=== PATIENT | female | born 1940 | race Caucasian/White ===

== ENCOUNTER 2018-09-05 02:13 | Outpatient (CLI) | payer MEDICARE, SELFPAY ==
[2018-09-05 08:19] LABS: Hemoglobin A1C 6.5 % (4.5-6.2)
[2018-09-05 08:52] LABS: ALT 27 U/L (12-78); AST 17 U/L (15-37); Albumin 3.3 g/dL (3.4-5.0); Alkaline Phosphatase 92 U/L (46-116); Anion Gap 7.5 mmol/L (3-11); BUN 23 mg/dL (7-18); Bilirubin, Total 0.4 mg/dL (0.2-1.0); CO2 28.5 mmol/L (21.0-32.0); CREATININE 0.82 mg/dL (0.55-1.02); Calcium 9.5 mg/dL (8.5-10.1); Chloride 107 mmol/L (98-107); Cholesterol 233 mg/dL (50-200); Glucose 116 mg/dL (70-100); HDL Cholesterol 51 mg/dL (40-60); LDL CHOLESTEROL 154 mg/dL (<100); Potassium 3.9 mmol/L (3.5-5.1); Sodium 143 mmol/L (136-145); Total Protein 6.7 g/dL (6.4-8.2); Triglyceride 138 mg/dL (30-150)
== END 2018-09-05 02:33 ==
DX: R73.01 Impaired fasting glucose (principal); I10 Essential (primary) hypertension; E78.5 Hyperlipidemia, unspecified; E03.9 Hypothyroidism, unspecified; R63.8 Other symptoms and signs concerning food and fluid intake; F32.9 Major depressive disorder, single episode, unspecified; G89.4 Chronic pain syndrome
CPT/HCPCS: 36415; 80053; 80061; 83721; 83036

== ENCOUNTER 2019-01-12 13:23 | Emergency (ER) | payer MEDICARE, MEDICAID, SELFPAY ==
[2019-01-12 13:26] VITALS: BP 143/65; PULSE 95; RESP 18; TEMP 36.6; O2SAT 95
--- NOTE | 2019-01-12 13:48 | W.ED.GENAD ---
Discharge Plan Disposition Patient Disposition: HOME Condition: Stable Discharge Details Chief Complaint: GenMedical Clinical Impression: Rash Primary Care Provider: Arlyn Shah ED Provider: Jaleel Catherine Home Meds and New Rx's Prescriptions: New doxycycline hyclate 100 mg tablet 100 mg PO BID Qty: 30 RF: 0 Continued gabapentin 300 mg capsule 300 mg PO DAILY Qty: 90 RF: 3 multivitamin 1 EACH tablet 1 ea PO DAILY RF: 0 cholecalciferol (vitamin D3) 1,000 UNIT capsule 1,000 unit PO DAILY RF: 0 lisinopril 5 MG tablet 5 mg PO DAILY Qty: 30 RF: 0 nystatin (bulk) 1 EACH powder 1 ea Miscellaneous TID Qty: 1 RF: 0 hydrochlorothiazide 25 mg tablet 25 mg PO QAM Qty: 90 RF: 3 omeprazole 20 mg capsule,delayed release(DR/EC) 20 mg PO DAILY Qty: 30 RF: 11 amlodipine 5 mg tablet 5 mg PO QAM Qty: 90 RF: 4 citalopram [Celexa] 20 mg tablet 20 mg PO DAILY Qty: 90 RF: 3 Discharge Instructions Additional Instructions: based on your symptoms and appearance of the rash we are treating you for possible lyme disease follow up with your primary care provider especially if symptoms continue in 1-2 weeks if you feel more ill, have new symptoms such as chest pain/pressure or difficulty breathing or persistent vomit return to the emergency department Medical Decision Making 78 yo female comes in with rash on her right shoulder. She states she was bit by some type of bug but is not sure what as she had a small bite area 2 weeks ago. She has had mild headaches and fatgiue since and has had this erythema of the right shoulder so came here. She is ambulating without assistance and in no distress, laughing intermittently on exam. She descrbies the headache as mild and has no meninigismus on exam. She has a 12cm area of erythema of the right shoulder with small 1cm central clearing and what appears to be a small area that was bit by an insect. I suspect lyme disease given symptoms and rash. Will initiate tx for this and obtain tick panel. She appears well without fevers so doubt sepsis and has no findings to suggest turbine blade assembler infection and do not feel lp indicated at this time. She was advised to f/u with pcp and return precautions given. The rash is not warm to touch and has no crepitus so doubt cellulitis or nec fasc Differential Diagnosis lyme, tick born illness HPI General Mode of arrival: ambulatory. Date/Time Provider Initiated Documentation: 01/12/19 13:32. Limitations to Documentation: no limitations. Information obtained by: patient. History of Present Illness 78 year old F presents to the emergency department with the chief complaint of rash, described as moderate, and is localized to the right and upper extremity. Patient started experiencing this week(s) (2) and it has been constant. No relieving factors improve symptom(s), No exacerbating factors reported . Patient did receive the following treatments prior to arrival, none Related Data Home Medications Medication Instructions Recorded Confirmed cholecalciferol (vitamin D3) 1,000 unit PO DAILY 10/11/12 01/12/19 multivitamin 1 ea PO DAILY 10/11/12 01/12/19 lisinopril 5 mg PO DAILY #30 tab-cap 05/22/17 01/12/19 nystatin (bulk) 1 ea MISCELLANEOUS TID #1 bottle 05/22/17 01/12/19 hydrochlorothiazide 25 mg tablet 25 mg PO QAM #90 tab 04/18/18 01/12/19 omeprazole 20 mg capsule,delayed 20 mg PO DAILY #30 tab-cap 04/25/18 01/12/19 release amlodipine 5 mg tablet 5 mg PO QAM #90 tab-cap 07/27/18 01/12/19 gabapentin 300 mg capsule 300 mg PO DAILY #90 cap 08/21/18 01/12/19 citalopram 20 mg tablet 20 mg PO DAILY #90 tab-cap 10/08/18 01/12/19 doxycycline hyclate 100 mg PO BID #30 tab 01/12/19 Previous Rx's Medication Instructions Recorded lisinopril 5 mg PO DAILY #30 tab-cap 05/22/17 nystatin (bulk) 1 ea MISCELLANEOUS TID #1 bottle 05/22/17 hydrochlorothiazide 25 mg tablet 25 mg PO QAM #90 tab 04/18/18 omeprazole 20 mg capsule,delayed 20 mg PO DAILY #30 tab-cap 04/25/18 release amlodipine 5 mg tablet 5 mg PO QAM #90 tab-cap 07/27/18 gabapentin 300 mg capsule 300 mg PO DAILY #90 cap 08/21/18 citalopram 20 mg tablet 20 mg PO DAILY #90 tab-cap 10/08/18 doxycycline hyclate 100 mg PO BID #30 tab 01/12/19 Allergies Allergy/AdvReac Type Severity Reaction Status Date / Time indomethacin Allergy Unknown Verified 01/12/19 13:32 General Stated Complaint: GenMedical JIGNA: 3 Review of Systems Review of Systems All systems reviewed & are unremarkable except as noted in HPI and below Constitutional Denies chills, Denies fever(s) and Denies weakness Cardiovascular Denies chest pain and Denies dyspnea Respiratory Denies cough and Denies dyspnea Gastrointestinal Denies abdominal pain, Denies nausea and Denies vomiting Musculoskeletal Denies joint swelling Neurologic Denies weakness [facility] Social History (Updated 09/04/18 @ 08:26 by Antione Cline) Smoking/Tobacco Use Status: Former Tobacco Use Second Hand Exposure: Yes Alcohol Intake: current Alcohol Intake frequency: a few times a month Substance use type: former substance user and marijuana Caregiver/Support person: No Household members: none Housing: house Pets and animals: Yes Pets and animals: cat(s) and dog(s) Sexually active: No Do you think of yourself as: lesbian/cox/homosexual Current gender identity: female What is your relationship status?: How often do you talk on the phone with friends or family?: three or more times per week How often do you get together with friends or relatives?: three or more times per week How often do you attend zoroastrianism or holiness services?: 4 or more times per year Do you belong to any clubs or organized social groups?: yes Panel score (0-1 are the most socially isolated patients): 3 What type of physical activity do you participate in: other Details: outdoor exercise, show shoveling, rowing machine Duration: 15-30 minutes/day Frequency: decline to answer Vero/Pentecostalism: Hoahaoism Special vero needs: No Do you feel safe at home: Yes Do you feel safe in your relationship?: Yes Exam Const General: no acute distress Orientation: alert HENMT Head: normal to inspection Ears: external ears normal General nose exam: external nose normal Mouth: moist mucous membranes Eyes General: appearance normal, both eyes and all related structures Neck Neck: normal visual inspection Resp Effort & Inspection: normal respiratory effort and able to speak in complete sentences Cardio Rate: regular rate Skin General skin exam: elasticity normal Neuro General: alert and oriented x3 Extrem General: full ROM Psych Mental Status: mental status grossly normal Course Vital Signs Temperature 36.6 C 01/12/19 13:26 Pulse 95 H 01/12/19 13:26 Respiratory Rate 18 01/12/19 13:26 Blood Pressure 143/65 H 01/12/19 13:26 Pulse Oximetry 95 01/12/19 13:26 Temperature 36.6 C 01/12/19 13:26 Temperature Source Temporal Artery Scan 01/12/19 13:26 Pulse 95 H 01/12/19 13:26 Respiratory Rate 18 01/12/19 13:26 Respiratory Effort Non-Labored 01/12/19 13:26 Blood Pressure 143/65 H 01/12/19 13:26 Pulse Oximetry 95 01/12/19 13:26 Oxygen Delivery Method Room Air 01/12/19 13:26 Oxygen Flow Rate 0 01/12/19 13:26
[2019-01-14 11:53] LABS: Lyme Ab w Rflx to Lyme Confirm Positive
[2019-01-15 15:26] LABS: Anaplasma phagocytophilum Negative (Negative); B. miyamotoi PCR Negative (Negative); Babesia divergens/MO-1 Negative (Negative); Babesia duncani Negative (Negative); Babesia microti Negative (Negative); Ehrlichia chaffeensis Negative (Negative); Ehrlichia ewingii/canis Negative (Negative); Ehrlichia muris eauclairensis Negative (Negative)
[2019-01-16 19:55] LABS: IgG Band(s) SEE COMMENTS kDa; IgG Immunoblot Positive; IgM Immunoblot Positive; Immunoblot Interpretation SEE COMMENTS
== END 2019-01-12 13:58 | disposition home or self-care (01) ==
PROVIDERS: Emergency Provider Emergency Medicine
DX: R21 Rash and other nonspecific skin eruption (principal); R51 Headache; S40.261A Insect bite (nonvenomous) of right shoulder, initial encounter; W57.XXXA Bitten or stung by nonvenomous insect and other nonvenomous arthropods, initial encounter
CPT/HCPCS: 36415; 86617; 87798; 99283; 86618

== ENCOUNTER 2019-07-02 09:15 | Outpatient (CLI) | payer MEDICARE, MEDICAID, SELFPAY ==
--- NOTE | 2019-07-02 11:05 | DI.RAD_ITS ---
EXAM: XR HIP LT COMPLETE AP PELVIS CLINICAL HISTORY: left hip pain M25.552 TECHNIQUE: COMPARISON: RIGHT HIP COMPLETE from 08/08/2012 FINDINGS: Three views were obtained. There is a total hip joint replacement in position on the right. The co mponents appear well seated. There are mild degenerative changes of the SI joints bilaterally. There is marked loss of cartilaginous joint space of the left hip with subchondral sclerosis of the a cetabulum and to a lesser degree the femoral head. Moderate marginal osteophyte formation of the elina tabulum is noted. IMPRESSION: Severe DJD left hip. Right hip total joint replacement in position.
== END 2019-07-02 09:35 ==
PROVIDERS: Visit Provider Nurse Practitioner
DX: M25.552 Pain in left hip (principal); M16.12 Unilateral primary osteoarthritis, left hip; Z96.641 Presence of right artificial hip joint; M53.3 Sacrococcygeal disorders, not elsewhere classified
CPT/HCPCS: 73502

== ENCOUNTER 2019-07-17 11:57 | Outpatient (CLI) | payer MEDICARE, MEDICAID, SELFPAY ==
--- NOTE | 2019-07-17 10:47 | DI.RAD_ITS ---
EXAM: XR KNEE LT 2V AP,LAT INDICATION: pain. COMPARISON: KNEES BILAT AP LATERALS from 08/08/2012 TECHNIQUE: 2D digital imaging was performed. FINDINGS: There are again seen postsurgical changes of a left total knee replacement. No evidence of hardware failure is identified. No acute fracture or dislocation is seen. There is a joint effusion. Soft t issues are unremarkable.
== END 2019-07-17 12:17 ==
PROVIDERS: Visit Provider Orthopaedic Surgery
DX: M25.562 Pain in left knee (principal); M25.462 Effusion, left knee; Z96.652 Presence of left artificial knee joint; M16.12 Unilateral primary osteoarthritis, left hip
CPT/HCPCS: 99214; 73560

== ENCOUNTER 2019-07-22 07:04 | Day surgery (SDC) | payer MEDICARE, SELFPAY ==
[2019-07-22 07:26] VITALS: BP 166/78; PULSE 72; RESP 16; TEMP 36.6
== END 2019-07-22 08:00 | disposition home or self-care (01) ==
LOC: SUR 07:04
PROVIDERS: Visit Provider Orthopaedic Surgery
DX: M16.12 Unilateral primary osteoarthritis, left hip (principal); Z53.8 Procedure and treatment not carried out for other reasons

== ENCOUNTER 2019-07-29 08:15 | Day surgery (SDC) | payer MEDICARE, MEDICAID, SELFPAY ==
[2019-07-29] MEDS: methylPREDNISolone ACETATE 80 MG/ML VIAL (11:02)
[2019-07-29] MEDS: Bupivacaine 0.5% Pres-Free 30 ML VIAL (11:02)
--- NOTE | 2019-07-29 11:07 | PDOC.DSDIS_ITS ---
Discharge Plan Disposition Patient Disposition: HOME Condition: Good Discharge Details Reason For Visit: C-ARM GUIDED L HIP INJECTION Attending Provider: Delon Ni Primary Care Provider: Arlyn Shah Home Meds and New Rx's Prescriptions: Continued multivitamin 1 EACH tablet 1 ea PO DAILY RF: 0 cholecalciferol (vitamin D3) 1,000 UNIT capsule 1,000 unit PO DAILY RF: 0 amlodipine 5 mg tablet 5 mg PO QAM Qty: 90 RF: 4 citalopram [Celexa] 20 mg tablet 20 mg PO DAILY Qty: 90 RF: 3 gabapentin 300 mg capsule 300 mg PO DAILY Qty: 90 RF: 3 omeprazole 20 mg capsule,delayed release(DR/EC) 20 mg PO DAILY Qty: 90 RF: 4 hydrochlorothiazide 25 mg tablet 25 mg PO QAM Qty: 90 RF: 3 ICaps AREDS [id number] Capsule RF: 0 ibuprofen 800 mg Tablet 800 mg PO Q6H RF: 0 acetaminophen [Tylenol] 325 mg Capsule 975 mg PO ONCE PRNRF: 0 Discharge Instructions Additional Instructions: Limit your walking for next 48 hours. Walk as much as you like on Mon. Take ibuprofen for mild pain. Follow up with in one month. Referrals: Delon Ni MD [ [facility] STAFF PHYSICIAN] - (f/u in one month) Activity:: Activity as Tolerated Diet:: As Tolerated Discharge Orders Discharge Orders: Discharge Order (Routine); Ordered 07/29/19 Ordered By: Delon Ni DS: Diagnosis Discharge Diagnosis (1) Osteoarthritis of hip: Status: Acute
--- NOTE | 2019-07-29 11:41 | DI.RAD_ITS ---
EXAM: XR HIP LT IN OR CLINICAL HISTORY: OA LEFT HIP. TECHNIQUE: 2D and realtime digital imaging was performed. COMPARISON: No exams were available for comparison FINDINGS: Please see procedure note for details. FLUORO TIME: 7.3 seconds
--- NOTE | 2019-07-29 17:26 | ROE_ITS ---
DATE OF PROCEDURE: July 29, 2019 PREOPERATIVE DIAGNOSIS: Osteoarthritis of the left hip. POSTOPERATIVE DIAGNOSIS: Same. PROCEDURE: C-arm guided intraarticular injection left hip. ANESTHESIA: Local. SURGEON: Delon Ni M.D. INDICATIONS: This is a 78-year-old white female known to me due to previous right total hip replacem ent. Over the last few months she's developed increasing pain in her left hip. X-rays showed osteoa rthritis of the hip of moderate degree. Since she had had no treatment for this hip, I recommended t hat she start with an intraarticular steroid injection. If she got greater than three months relief from injection, would continue to manage it with injections until they no longer work. Her only alte rnative then would be a total hip replacement. The patient agreed with trying the conservative treat ment program first before jumping to total hip replacement. The risks and complications of the proce dure were explained to the patient in detail preoperatively. PROCEDURE: The patient was taken to the operating room on 07/29/2019. She was placed supine on the o perating table. The C-arm was brought in to the AP mode. The uterine forceps was used to localize t he hip joint. The skin was prepped with alcohol and then an 18 gauge spinal needle was inserted unti l it contacted the femoral head. Good position of the spinal needle in the hip joint and femoral hea d was confirmed with the C-arm. At this point I injected into her hip joint through the spinal needl e 20 cc's of 0.5% Marcaine solution along with 80 mg of Depo-Medrol. The spinal needle was removed a nd bleeding at the pin site was controlled with pressure with a gauze 4x4. I performed a passive mot ion of her left hip for a couple of minutes to distribute the medication. She achieved good relief o f pain. She was discharged to the Day Surgery Unit in good condition. The patient was later discharged home from the Day Surgery Unit. She was experiencing some muscular pain around her anterior hip joint following the injection. It didn't hurt her to step on her hip. I thought that she was feeling a reaction to the steroid. I explained to her that this often happens and usually will resolve after 48 hours. She was given instructions to limit her walking for the next 48 hours; apply ice to her hip q4h for a n hour each time and take ibuprofen as needed for pain. After 48 hours she may resume activities as tolerated. She will follow-up with me in one month.
== END 2019-07-29 12:21 | disposition home or self-care (01) ==
PROVIDERS: Visit Provider Orthopaedic Surgery
PROC: (CPT 20610; principal; 2019-07-29 10:00)
DX: M16.12 Unilateral primary osteoarthritis, left hip (principal); M25.552 Pain in left hip; Z96.641 Presence of right artificial hip joint
CPT/HCPCS: 20610; 77002; J1040

== ENCOUNTER → 2019-08-27 10:05 | Outpatient (BNVA) | payer MEDICARE, MEDICAID, SELFPAY | PROVIDERS: Visit Provider Orthopaedic Surgery | DX: M16.2 Bilateral osteoarthritis resulting from hip dysplasia (principal); I10 Essential (primary) hypertension; Z98.890 Other specified postprocedural states | CPT/HCPCS: 99213 ==

== ENCOUNTER → 2019-11-20 11:01 | Outpatient (BNVA) | payer MEDICARE, MEDICAID, SELFPAY | PROVIDERS: Visit Provider Orthopaedic Surgery | DX: M16.12 Unilateral primary osteoarthritis, left hip (principal); E11.9 Type 2 diabetes mellitus without complications | CPT/HCPCS: 99213 ==

== ENCOUNTER 2019-11-29 20:35 | Outpatient (REF) | payer MEDICARE, MEDICAID, SELFPAY ==
[2019-11-29 21:43] LABS: ALT 38 U/L (14-59); AST 27 U/L (15-37); Albumin 3.8 g/dL (3.4-5.0); Alkaline Phosphatase 83 U/L (46-116); BUN 28 mg/dL (7-18); Bilirubin, Total 0.4 mg/dL (0.2-1.0); CREATININE 0.95 mg/dL (0.55-1.02); Calcium 9.8 mg/dL (8.5-10.1); Chloride 102 mmol/L (98-107); Estimated GFR 56.89 (mL/min/1.73m2); Glucose 100 mg/dL (74-106); Potassium 3.7 mmol/L (3.5-5.1); Sodium 138 mmol/L (136-145); Total Protein 6.9 g/dL (6.4-8.2)
== END 2019-11-29 20:55 ==
LOC: LBN 20:35
DX: E78.2 Mixed hyperlipidemia (principal); F32.9 Major depressive disorder, single episode, unspecified; I10 Essential (primary) hypertension; R63.8 Other symptoms and signs concerning food and fluid intake
CPT/HCPCS: 80053

== ENCOUNTER 2019-12-19 04:35 | Outpatient (CLI) | payer MEDICARE, SELFPAY ==
[2019-12-19 12:58] LABS: Hemoglobin A1C 6.1 % (3.8-5.6)
== END 2019-12-19 04:55 ==
PROVIDERS: Visit Provider Orthopaedic Surgery
DX: E11.9 Type 2 diabetes mellitus without complications (principal); R73.01 Impaired fasting glucose; M16.12 Unilateral primary osteoarthritis, left hip; M25.552 Pain in left hip; Z01.818 Encounter for other preprocedural examination
CPT/HCPCS: 36415; 86850; 86900; 86901; 83036

== ENCOUNTER 2019-12-20 08:31 | Outpatient (CLI) | payer MEDICARE, MEDICAID, SELFPAY ==
[2019-12-20 23:40] LABS: COVID-19 RT-PCR UVMMC Result Negative (Negative)
== END 2019-12-20 08:51 ==
PROVIDERS: Visit Provider Orthopaedic Surgery
DX: Z11.59 Encounter for screening for other viral diseases (principal); Z01.818 Encounter for other preprocedural examination; M16.12 Unilateral primary osteoarthritis, left hip; E11.9 Type 2 diabetes mellitus without complications; I10 Essential (primary) hypertension
CPT/HCPCS: U0003

== ENCOUNTER 2019-12-23 06:04 | Inpatient (IN) | payer MEDICARE, MEDICAID, SELFPAY ==
[2019-12-23] VITALS (14 sets, daily range): BP systolic 95–152; BP diastolic 48–76; PULSE 50–79; RESP 11–19; TEMP 35.8–36.9; O2SAT 93–99
--- NOTE | 2019-12-23 | DI.RAD_ITS ---
EXAM: XR PELVIS AP CLINICAL HISTORY: check total hip components in RR. TECHNIQUE: 2D digital imaging was performed. COMPARISON: CT CHEST ABD PELVIS WO CONTRAST from 11/28/2016 CR XR HIP LT COMPLETE AP PELVIS from 07/02/2019 CR XR HIP LT IN OR from 12/23/2019 FINDINGS: The patient is now status post left total hip replacement. The orthopedic hardware appears in good p osition. There is an old right total hip replacement which appears stable. The soft tissues are unr emarkable. IMPRESSION: Status post left total hip replacement. DATA REPOSITORY: RADIATION DOSE DELIVERED:
--- NOTE | 2019-12-23 07:00 | DI.RAD_ITS ---
EXAM: XR HIP LT IN OR CLINICAL HISTORY: OSTEOARTHRITIS LEFT HIP. TECHNIQUE: 2D digital imaging was performed. COMPARISON: CR XR HIP LT COMPLETE AP PELVIS from 07/02/2019 FINDINGS: Two images of the left hip were obtained intraoperatively. There are findings of placement of a left total hip replacement. The orthopedic hardware appears in good position. Postsurgical changes are seen in the soft tissues. There is an old right total hip replacement in place. IMPRESSION: Left total hip replacement. Postsurgical changes in the soft tissues of the left hip. DATA REPOSITORY: RADIATION DOSE DELIVERED:
[2019-12-23] MEDS: Lactated Ringers 1,000 ML 80 ML IV ×2 (07:09→11:40)
[2019-12-23] MEDS: ceFAZolin 2 GM/50 ML BAG IVPB ×3 (07:36→17:29)
[2019-12-23] MEDS: oxyCODONE-CR 10 MG TABCR PO (12:28)
--- NOTE | 2019-12-23 13:06 | NUR.NOTE ---
Nursing Note:1150- pt transferred from PACU to medsur floor. VSS, immobilizer in place, fluids running, and vital signs being monitored. pt put on capnography.
--- NOTE | 2019-12-23 14:11 | PT.INIE ---
Date of service: 12/23/19 Time of Service: 14:11 PT Notes Visit Reasons: POST-OP L TOTAL HIP Physical Therapy Inpatient Initial Evaluation Date: 12/23/2019 Referring Doctor: Delon Ni MD PT Orders: PT CONSULT: S/P Ortho surgery. Get OOB in room this afternoon. L total hip precautions. Precautions: Fall. Standard. WBAT on L LE. Total hip precautions on L. Patient Profile/Admitting Diagnosis: Cathryn is a 79-year-old female with primary unilateral osteoarthritis S/P L posterior total hip arthroplasty on postoperative day 0. PMHX: Medical History Depression (Acute 07/10/14) Diabetes mellitus (Chronic) Essential hypertension (Acute 04/22/13) Increased body mass index (BMI) (Acute 08/15/17) Tick bite (Acute) Surgical History Cholecystectomy HERNIA REPAIR (~2007) -COMPLICATION OF HERNIA REPAIR AT [facility] [place] reversed History of tonsillectomy and adenoidectomy (Acute) Replacement of total knee joint LEFT 1994. RIGHT 2002 Splenomegaly pt. reports spleen was removed Total replacement of hip (~2008) RIGHT Social History/Home Situation: Lives alone in private home in [place], [place] with 4 steps to enter and rails on both sides. She had been using a single-point cane in the past several months as it had been getting harder to move about due to her worsening arthritis. She is independent with all aspects of ADLs prior to surgery. 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 She has friends who can be there whenever needed for any kind of support. Equipment Owned/DME: Has FWW, SPC, walk-in shower, hand-held shower head, grab bars Subjective: Cathryn reports that she hopes to go home as soon as she is safe to do so. She states that she has friends at home to help her as needed. She lives n one floor and does not need to negotiate long steps inside her home. She reports 3/10 pain at rest and 4-5/10 with weight bearing. Denies headache, dizziness, and chest pain throughout session. She states that she has good understanding of her precautions against sitting on low chairs placing L knee above hip, crossing her legs, and rotating thighs too much inward. Objective: General Observation: IV in L UE. Briggs catheter in place. TEDS to B LE. Oxygen supplementation via NC. Obese. Mental Status: Alert and oriented x 4 Pain: 3/10 at rest. 4-5/10 with weight bearing Vital Signs: WNL as closely monitored by nursing ROM: Right Upper Extremity: Shoulder Flexion WFL. Shoulder abduction WFL. Elbow flexion WFL. Wrist flexion WFL. Opening and closing of hand WFL. Left Upper Extremity: Shoulder Flexion WFL. Shoulder abduction WFL. Elbow flexion WFL. Wrist flexion WFL. Opening and closing of hand WFL. Right Lower Extremity: Hip flexion WFL. Hip abduction WFL. Knee flexion WFL. Ankle dorsiflexion WFL. Ankle plantarflexion WFL. Left Lower Extremity: Hip flexion tested to 90 degrees only d/t movement precautions. Hip abduction WFL. Knee flexion WFL. Ankle dorsiflexion WFL. Ankle plantarflexion WFL. Strength: Right Upper Extremity: Shoulder flexors 5/5. Shoulder abductors 5/5. Elbow flexors 5/5. Elbow extensors 5/5. Payroll Services Analyst strong. Left Upper Extremity: Shoulder flexors 5/5. Shoulder abductors 5/5. Elbow flexors 5/5. Elbow extensors 5/5. Payroll Services Analyst strong. Right Lower Extremity: Hip flexors 4/5. Hip abductors 4/5. Knee flexors 4/5. Knee extensors 4/5. Ankle dorsiflexors 4/5. Ankle plantarflexors 5/5. Left Lower Extremity:Hip flexors 3-/5. Hip abductors 3+/5. Knee flexors 4-/5. Knee extensors 4-/5. Ankle dorsiflexors 4/5. Ankle plantarflexors 4/5. Sensation: Intact as to pain and pressure on bilateral lower extremities. Bed Mobility/Transfers: Supine to sit minimal assist to L LE Sit to stand CGA, requires use of B hands for support, needs FWW Stand to sit CGA, requires use of B hands for support, needs FWW Bed to chair CGA, requires use of B hands for support, needs FWW Gait: 15 feet with FWW. WBAT on L LE. CGA by PT. Step to gait pattern. Pain complaint of 5/10 about which Nurse Cathryn was updated Balance: Static Sitting: Normal Dynamic Sitting: Normal Static Standing: Fair Dynamic Standing: Fair Special Tests: Mobility Limitations Standardized Measure [facility]-P[facility] 6 clicks Basic Mobility Inpatient Short Form: Raw Score: 15 CMS Score: 58% deficit Informed Consent/Education: Patient instructed in purpose of PT consult and plan of care. Assessment: Cathryn demonstrates functional mobility decline requiring the use of front-wheeled walker for all mobility ADL performance, impairments in strength and range of motion, and unsteadiness of gait resulting from postoperative status that can increase fall risk. Cathryn is a 79-year-old female with primary unilateral osteoarthritis S/P L posterior total hip arthroplasty on postoperative day 0. Patient presents with clinical signs and symptoms consistent with current/admitting diagnoses that have resulted to mobility limitations, gait instability, generalized weakness, and impairment of motor control as demonstrated by the following impairment level findings: 1. Decreased strength to L hipmajor muscle groups 2. Impaired sitting/standing balance 3. Impaired activity tolerance 4. Limitation of joint range of motion in L hip Impairments are contributing to the following functional limitations: 1. Dependent bed mobility skills 2. Increased dependence with transfers 3. Inability to safely ambulate without assistive device and physical assistance 4. Increase completion time for mobility ADL performance 5. Increased fall risk 6. Inability to negotiate steps alone safely Patient is assessed as a 36779 moderate complexity based on the following: History: 79-year-old female with impairment level findings, functional limitations, and past medical history as indicated above Examination: Demonstrable impairment in strength, balance, and mobility level with underlying impairments and functional limitations as documented above Presentation:Evolving Decision Makin moderate complexity Goals: Goals X 3 days 1. Supine-Sit independent 2. Sit-Supine independent 3. Sit-Stand independent 4. Stand-Sit independent 5. Bed-Chair independent 6. Chair-Bed independent 7. Independent gait on level surface with use of least restrictive device for at least 300 feet without report of pain nor dyspnea 8. Independent stair negotiation while holding onto bilateral rails for at least 5 steps without report of pain nor dyspnea 9. Independent with home exercise program 10. Good static and dynamic standing balance/tolerance Plan of Care/Treatment Plan: 1-2x/day, 7 days/week x 1 week. Plan of care has been reviewed with the OFFICE TECHNOLOGY INSTRUCTOR providing the service under Physical Therapy direction. Initiate Physical Therapy intervention for strengthening, bed mobility, transfers, gait, stairs, balance training, use of assistive device. PT intervention: Session today consisted of initial PT evaluation and education/training on mobility ADL performance using the FWW. Cathryn was also instructed on performing room exercises consiting of gluteal sets x 10, quadriceps sets x 10, and ankle pumps x 20. She was advised to do said exercises every two hours in her room. Written instructions were done on white board in her room for increased compliance. DISCHARGE RECOMMENDATIONS: Patient will benefit from home health PT services in order to progress mobility level using least restrictive assistive ambulatory device, assess home safety, identify additional equipment needs, and establish a functional maintenance program that will increase ability of patient to remain at home. TREATMENT CODE/TIME: 51299 x 20 minutes, 24189 x 27 minutes beginning at 14:11 PM. Thank you very much for this referral. Josi Harding PT, DPT, CLT [facility] [place], [place]
[2019-12-23] MEDS: Docusate Sodium 100 MG CAP PO ×2 (14:48→20:47)
[2019-12-23] MEDS: Ketorolac 30 MG/ML VIAL IVP ×2 (14:49→20:48)
[2019-12-23] MEDS: Normal Saline Flush 10 ML SYR IV (14:49)
[2019-12-23] MEDS: HYDROcodone 5/Acetaminophen 325 TAB PO (17:29)
[2019-12-23] MEDS: POTASSIUM CHLORIDE/0.9% NACL 1,000 ML 125 MEQ IV (19:28)
[2019-12-24] VITALS (11 sets, daily range): BP systolic 103–142; BP diastolic 48–65; PULSE 70–93; RESP 18–22; TEMP 36.3–37.8; O2SAT 87–97
[2019-12-24] MEDS: ceFAZolin 2 GM/50 ML BAG IVPB ×2 (00:01→07:20)
[2019-12-24] MEDS: oxyCODONE-CR 10 MG TABCR PO ×3 (00:01→23:45)
[2019-12-24] MEDS: Normal Saline Flush 10 ML SYR IV ×3 (02:00→19:16)
[2019-12-24] MEDS: Ketorolac 30 MG/ML VIAL IVP ×4 (02:00→19:16)
[2019-12-24] MEDS: HYDROcodone 5/Acetaminophen 325 TAB PO ×2 (02:25→12:32)
[2019-12-24] MEDS: POTASSIUM CHLORIDE/0.9% NACL 1,000 ML 125 MEQ IV (04:07)
[2019-12-24 07:36] LABS: HCT 31.9 % (36.0-46.0); HGB 10.1 g/dL (12.0-15.5); Mean Corp. HGB Concentration 31.7 g/dL (32.0-36.0); Mean Corpuscular Hemoglobin 31.4 pg (27.0-33.0); Mean Corpuscular Volume 99.1 fL (80-95); Mean Platelet Volume 9.3 fL (8.0-11.0); Platelet Count 414 x1000/uL (130-400); RBC 3.22 m/cumm (4.00-5.20); RBC Distribution Width 14.4 % (11.7-14.6); White Blood Cell Count 9.47 k/cumm (4.4-10.8)
[2019-12-24] MEDS: Docusate Sodium 100 MG CAP PO ×3 (08:12→19:16)
[2019-12-24] MEDS: Cholecalciferol (Vitamin D3) 1,000 UNIT TAB 1000 UNITS PO (08:12)
[2019-12-24] MEDS: amLODIPine 5 MG TAB PO (08:12)
[2019-12-24] MEDS: Multivitamin TAB 1 TAB PO (08:12)
[2019-12-24] MEDS: Gabapentin 300 MG CAP PO (08:12)
[2019-12-24] MEDS: hydroCHLOROthiazide 25 MG TAB PO (08:13)
[2019-12-24] MEDS: Pantoprazole 40 MG TABCR PO (08:13)
[2019-12-24] MEDS: Citalopram 20 MG TAB PO (08:13)
[2019-12-24] MEDS: Atenolol 25 MG TAB PO (08:13)
--- NOTE | 2019-12-24 10:16 | PDOC.CMIN ---
- If Service Date Differs Date of service: 12/24/19 Time of Service: 10:16 Care Management Initial Assess REASON FOR HOSPITALIZATION:: L total hip replacement PAST MEDICAL HISTORY/PAST SURGICAL HISTORY:: Medical History . Depression (Acute 07/10/14). Diabetes mellitus (Chronic). Essential hypertension (Acute 04/22/13). Increased body mass index (BMI) (Acute 08/15/17). Tick bite (Acute). Surgical History . Cholecystectomy. HERNIA REPAIR (~2007). [place] [facility] [place]. History of tonsillectomy and adenoidectomy (Acute). Replacement of total knee joint. LEFT 1994. RIGHT 2002. Splenomegaly. pt. reports spleen was removed. Total replacement of hip (~2008). RIGHT PREVIOUS FUNCTIONAL STATUS/SOCIAL/FAMILY SUPPORTS:: Cathryn lives alone in [place]. She is , and still mourns the loss of her beloved partner, who passed three years ago. 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 She is independent at baseline. CURRENT FUNCTIONAL STATUS:: Cathryn was sitting up in her bed when CM met with her. She reported that she was feeling pretty good, but doesn't feel good enough to return home today. She lives alone and has three stairs to manage to get into her home. She has a dog and several chickens to care for. She stated that she has friends that are looking after her animals, and they will stay with her if needed for a short time while she heals. She feels that she will benefit from another night, including more time working with PT. CM will continue to follow. ADVANCE DIRECTIVES:: On file, Susie Cabrera listed as agent. Has patient been provided with info about the portal/API?: No Did the patient sign up for the portal?: No CODE STATUS:: Full Code INSURANCE COVERAGE / FINANCIAL ISSUES:: [facility] CURRENT HOME/COMMUNITY SERVICES/EQUIPMENT:: No current services or equipment at this time. PRIMARY CARE PHYSICIAN:: Arlyn Shah POTENTIAL DISCHARGE NEEDS:: Evaluations for further needs, follow up appointments PATIENT/FAMILY EDUCATION NEEDS:: Review discharge instructions regarding activity levels and medications, discussion of self care needs including ask me three. ANTICIPATED BARRIERS TO DISCHARGE:: None identified at this time. TRANSPORTATION:: She will be driven home via private vehicle by friends. PLAN:: Anticipate Cathryn will return home when medically cleared. She will be driven home via private vehicle by friends. She will follow up with her PCP and discharge plan of care. CM will continue to follow and support discharge planning considerations.
--- NOTE | 2019-12-24 11:17 | CHAPLAIN ---
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 Cathryn said she's had her other hip, and both knees replaced, so she believes she knew what she was getting into. She lives alone and is a bit nervous about going home alone she said, but knows she has managed before. She easily engages in a conversation and encourages me to speak with her the next time I'm in the [employer].
[2019-12-24] MEDS: Enoxaparin 40 MG/0.4 ML SYR SC (12:46)
[2019-12-24] MEDS: POTASSIUM CHLORIDE/0.9% NACL 1,000 ML 60 MEQ IV (12:47)
--- NOTE | 2019-12-24 13:35 | W.PM.PROGNOT ---
Date of Service Date of service: 12/24/19 Time of Service: 13:35 Assessment and Plan Assessment and plan (1) Status post total hip replacement, left: Status: Acute Assessment and plan: Assessment: Stable postop day #1 left total hip replacement. Plan: KRYSTIN Briggs. Try to get her pain under better control. She may be discharged home when she is independent with transfers, ambulation and is taking only p.o. pain meds. Subjective Subjective Interval history since last seen: She is presently having increased pain after being up and around with PT this morning. She is sitting in the chair. Prior to this she was very comfortable with the scheduled pain meds. Exam Narrative Exam Narrative: She is afebrile vital signs are stable. Hemoglobin 10.1 g today. Her intakes and outputs are good. She has good active dorsiflexion of her left ankle. Has normal sensation circulation to the left foot. She has been out of bed with PT and walked in the hallway today. Objective Objective Clinical Data: Abnormal lab results 12/24/19 Range/Units 06:50 RBC 3.22 L (4.00-5.20) m/cumm Hgb 10.1 L (12.0-15.5) g/dL Hct 31.9 L (36.0-46.0) % MCV 99.1 H (80-95) fL MCHC 31.7 L (32.0-36.0) g/dL Plt Count 414 H (130-400) x1000/uL Vital Signs Temperature 37.1 C 12/24/19 11:26 Temperature Source Tympanic 12/24/19 11:26 Pulse 90 12/24/19 11:26 Pulse Rhythm Regular 12/24/19 09:50 Respiratory Rate 22 12/24/19 11:26 Respiratory Effort 12/24/19 09:50 Respiratory Depth Normal 12/24/19 09:50 Respiratory Pattern Normal 12/24/19 09:50 Blood Pressure 130/65 12/24/19 11:26 Pulse Oximetry 94 L 12/24/19 11:26 Respiratory End-tidal CO2 48 12/23/19 11:05 Oxygen Delivery Method Room Air 12/24/19 11:26 Oxygen Flow Rate 0 12/24/19 11:26 Pain Level 7 12/24/19 12:32 Comment 12/24/19 08:31 Intake & Output 12/23/19 12/24/19 12/24/19 23:59 11:59 23:59 Intake Total 270 / 2155.974 6020.833 / 2535.833 330 / 2535.833 Output Total 350 / 775 1050 / 1050 Balance -80 / 703.406 5607.833 / 1485.833 330 / 1485.833 Intake: IV 150 / 6365.351 4981.833 / 1775.833 330 / 1775.833 Oral 120 / 160 760 / 760 Output: Urine 350 / 475 1050 / 1050 Other: Urine Color Yellow Yellow Urine Appearance Clear Clear Laboratory Results WBC 9.47 k/cumm (4.4-10.8) 12/24/19 06:50 RBC 3.22 m/cumm (4.00-5.20) L 12/24/19 06:50 Hgb 10.1 g/dL (12.0-15.5) L 12/24/19 06:50 Hct 31.9 % (36.0-46.0) L 12/24/19 06:50 MCV 99.1 fL (80-95) H 12/24/19 06:50 MCH 31.4 pg (27.0-33.0) 12/24/19 06:50 MCHC 31.7 g/dL (32.0-36.0) L 12/24/19 06:50 RDW 14.4 % (11.7-14.6) 12/24/19 06:50 Plt Count 414 x1000/uL (130-400) H 12/24/19 06:50 MPV 9.3 fL (8.0-11.0) 12/24/19 06:50
--- NOTE | 2019-12-24 14:03 | PT.INTREAT ---
Date of service: 12/24/19 Time of Service: 14:04 PT Notes Visit Reasons: POST-OP L TOTAL HIP Inpatient Physical Therapy Treatment Note [facility] Date: 12/24/19 PRECAUTIONS: Fall, WBAT L SUBJECTIVE: Cathryn is pleasant and agreeable to participating in PT. She states that she feels she should stay 1 more night, until she feels comfortable with going home where she lives alone. She reports in the afternoon I will be able to go home tomorrow. OBJECTIVE: PAIN: Patient c/o L hip area discomfort with ther ex and notes a decrease in hip discomfort with gait training BED MOBILITY/TRANSFERS Supine-sit: S with HOB flat Sit-supine: SBA with HOB flat and instruction and use of leg micrographics services supervisor Sit-stand: SBA Stand-sit: SBA Bed?chair: SBA Chair?bed: SBA GAIT Assistive Device: FWW Weight bearing: WBAT L Assist: SBA Distance: 10' +50' in a.m.; 100' in p.m. Deviation: Utilized step through gait pattern following instruction THEREX: Patient completed a lower extremity strengthening and stabilization program, in a supine position, as per flow sheet. In a.m., patient required assistance with hip abduction exercise, and was able to complete this exercise without assistance in p.m.. ASSESSMENT: Patient tolerated session with c/o L LE discomfort. She was able to tolerate a progression in gait distance with FWW support and SBA. She is also able to demonstrate step through gait pattern following instruction. Patient would benefit from continued participation in gait training as well as L LE strengthening for improved strength and mobility. PLAN: Continue with gait training and ther ex, and add stair training tomorrow TREATMENT CODE/TIME: Session 1: 30 minutes; 60120, 95512 Section 2: 40 minutes; 90208 x2, 03338
[2019-12-24] MEDS: Acetaminophen 325 MG TAB 650 MG PO (16:11)
[2019-12-25] MEDS: Ketorolac 30 MG/ML VIAL IVP ×2 (02:05→08:14)
[2019-12-25] MEDS: Normal Saline Flush 10 ML SYR IV ×2 (02:05→08:14)
[2019-12-25 03:33] VITALS: BP 127/66; PULSE 96; RESP 20; TEMP 38.3; O2SAT 90
[2019-12-25] MEDS: POTASSIUM CHLORIDE/0.9% NACL 1,000 ML 60 MEQ IV (05:41)
[2019-12-25 07:24] VITALS: BP 133/63; PULSE 92; RESP 16; TEMP 37.3; O2SAT 97
[2019-12-25 07:29] LABS: HCT 28.3 % (36.0-46.0); Mean Corp. HGB Concentration 31.8 g/dL (32.0-36.0); Mean Corpuscular Hemoglobin 31.6 pg (27.0-33.0); Mean Corpuscular Volume 99.3 fL (80-95); Mean Platelet Volume 9.3 fL (8.0-11.0); Platelet Count 349 x1000/uL (130-400); RBC 2.85 m/cumm (4.00-5.20); RBC Distribution Width 14.5 % (11.7-14.6); White Blood Cell Count 10.36 k/cumm (4.4-10.8)
[2019-12-25] MEDS: amLODIPine 5 MG TAB PO (08:12)
[2019-12-25] MEDS: Cholecalciferol (Vitamin D3) 1,000 UNIT TAB 1000 UNITS PO (08:12)
[2019-12-25] MEDS: Gabapentin 300 MG CAP PO (08:12)
[2019-12-25] MEDS: Pantoprazole 40 MG TABCR PO (08:13)
[2019-12-25] MEDS: Citalopram 20 MG TAB PO (08:13)
[2019-12-25] MEDS: Multivitamin TAB 1 TAB PO (08:13)
[2019-12-25] MEDS: Acetaminophen 325 MG TAB 650 MG PO (08:13)
[2019-12-25] MEDS: Docusate Sodium 100 MG CAP PO ×2 (08:13→14:46)
[2019-12-25] MEDS: hydroCHLOROthiazide 25 MG TAB PO (08:14)
[2019-12-25] MEDS: Atenolol 25 MG TAB PO (08:14)
[2019-12-25 11:32] VITALS: BP 103/56; PULSE 69; RESP 18; TEMP 37.3; O2SAT 91
[2019-12-25] MEDS: oxyCODONE-CR 10 MG TABCR PO (12:37)
[2019-12-25] MEDS: Enoxaparin 40 MG/0.4 ML SYR SC (12:38)
--- NOTE | 2019-12-25 12:40 | PTTR_ITS ---
Date of service: 12/25/19 Time of Service: 12:40 PT Notes Visit Reasons: POST-OP L TOTAL HIP Inpatient Physical Therapy Treatment Note [facility] Date: 12/25/19 PRECAUTIONS: Fall, WBAT L SUBJECTIVE: Cathryn is pleasant and agreeable to participating in PT. She states that she had a tough morning, with increased pain, and she was feeling emotional. She is trying to determine whether she feels comfortable enough to go home today, or if she should stay one more night. OBJECTIVE: PAIN: Patient c/o L hip area discomfort with ther ex and notes a decrease in hip discomfort with gait training BED MOBILITY/TRANSFERS: Patient completed bed mobility/transfers x2 each in p.m. Supine-sit: S with HOB flat in a.m.; I with HOB flat in p.m. Sit-supine: I with HOB flat and use of leg relay shop tester in p.m. Sit-stand: S in a.m.; I in p.m. Stand-sit: S in a.m.; I in p.m. Bed?chair: S Chair?bed: S GAIT Assistive Device: FWW Weight bearing: WBAT L Assist: S Distance: 100' +160' in a.m.; 3 side steps up the bed to the L in p.m. Deviation: Utilized step through gait pattern THEREX: Patient completed a lower extremity strengthening and stabilization program, in a supine position, as per flow sheet. STAIRS: Up/down 3x4 and 2x6 using B rails and a step-to pattern with supervision. ASSESSMENT: Patient tolerated session with c/o L LE discomfort. She was able to tolerate a progression in gait distance with FWW support and supervision. Patient would benefit from continued participation in gait training as well as L LE strengthening for improved strength and mobility. PLAN: Continue with PT's POC TREATMENT CODE/TIME: Session 1: 40 minutes; 48369 x2, 12225 Section 2: 20 minutes; 08314
--- NOTE | 2019-12-25 12:54 | W.PM.DS.N ---
Date of service: 12/25/19 Time of Service: 12:54 DS: Diagnosis Discharge Diagnosis (1) Status post total hip replacement, left: Status: Acute Discharge Plan Disposition Patient Disposition: HOME Condition: Good Discharge Details Reason For Visit: POST-OP L TOTAL HIP Admit Date/Time: 12/23/19 06:04 Admit Provider: Delon Ni Attending Provider: Delon Ni Primary Care Provider: Arlyn Shah Hospital Course Hospital Course: Patient was taken the operating room on the day of admission 12/23/2019 where she underwent a left total hip arthroplasty without complication. She was mobilized on the day of surgery. She progressed with her mobilization achieving full independence by 12/25/2019. Dressings were removed and the wound checked on 12/25/2019. It was clean dry with no sign of any infection. Hemoglobin stabilized at 9.0 mg on 12/25/2019. She had no symptoms of anemia. She was afebrile taking only p.o. pain meds by 12/25/2019. I felt she had achieved all acute care goals and was ready for discharge home. Home Meds and New Rx's Prescriptions: New hydrocodone-acetaminophen 5-325 mg tablet 1 tab PO Q6H PRN (Reason: pain) Qty: 14 RF: 0 Continued amlodipine 5 mg tablet 5 mg PO QAM Qty: 90 RF: 4 citalopram [Celexa] 20 mg tablet 20 mg PO DAILY Qty: 90 RF: 3 clotrimazole 1 % cream 1 applic TP BID Qty: 24 RF: 0 multivitamin 1 EACH tablet 1 ea PO DAILY RF: 0 cholecalciferol (vitamin D3) 1,000 UNIT capsule 1,000 unit PO DAILY RF: 0 gabapentin 300 mg capsule 300 mg PO DAILY Qty: 90 RF: 3 omeprazole 20 mg capsule,delayed release(DR/EC) 20 mg PO DAILY Qty: 90 RF: 4 hydrochlorothiazide 25 mg tablet 25 mg PO QAM Qty: 90 RF: 3 atenolol 25 mg Tablet 25 mg PO DAILY RF: 0 ICaps AREDS [id number] Capsule RF: 0 ibuprofen 800 mg Tablet 800 mg PO Q6H RF: 0 acetaminophen [Tylenol] 325 mg Capsule 975 mg PO ONCE PRNRF: 0 Discharge Instructions Additional Instructions: Total hip precaution sheet. Follow for 6 weeks. October shower and get dressings wet. Do not remove the dressings. let them come off by themselves over time. Take ibuprofen 800 mg 3 times a day for the next 10 days. Take hydrocodone for breakthrough pain, if needed. Apply ice to left hip incision 3-4 times a day for an hour each time. Using walker, walk every day as much as her discomfort allows. Take 1 baby aspirin (81 mg) twice a day for 30 days to prevent blood clots in the legs. Return to Dr. Ni's office in 2 weeks. Referrals: Delon Ni MD [ [facility] STAFF PHYSICIAN] - (f/u in 2 weeks.) Activity:: Activity as Tolerated Equipment/Supplies:: Walker Diet:: As Tolerated Discharge Orders Discharge Orders: Discharge Order (Routine); Ordered 12/25/19 Ordered By: Delon Ni DS: Summary Status at Discharge Functional status at discharge: independent ambulation Overall status at discharge: patient is not back to baseline Mental Status: mental status grossly normal Speech and Movement: speech and movement normal Mood: congruent mood Affect: normal affect Exam Psych Mental Status: mental status grossly normal Speech and Movement: speech and movement normal Mood: congruent mood Affect: normal affect DS: Data Vitals/I&O Vitals and I&O: Vital Signs Temperature 37.3 C 12/25/19 11:32 Temperature Source Tympanic 12/25/19 11:32 Pulse 69 12/25/19 11:32 Pulse Rhythm Regular 12/25/19 07:26 Respiratory Rate 18 12/25/19 11:32 Respiratory Effort 12/25/19 07:26 Respiratory Depth Normal 12/25/19 07:26 Respiratory Pattern Normal 12/25/19 07:26 Blood Pressure 103/56 L 12/25/19 11:32 Pulse Oximetry 91 L 12/25/19 11:32 Respiratory End-tidal CO2 48 12/23/19 11:05 Oxygen Delivery Method Room Air 12/25/19 11:32 Oxygen Flow Rate 0 12/25/19 11:32 Pain Level 2 12/25/19 11:32 Comment 12/25/19 07:24 Intake & Output 12/24/19 12/25/19 12/25/19 23:59 11:59 23:59 Intake Total 1320 / 3525.833 1250 / 1250 Output Total 80 / 1130 Balance 1240 / 2395.833 1250 / 1250 Intake: IV 330 / 4142.296 8914 / 1000 Oral 990 / 1750 250 / 250 Output: Urine 80 / 1130 Other: Urine Color Yellow Urine Appearance Clear Clear Comment Missed hat. pt voided into the toilet Voiding Methods Toilet Toilet Data Completed and Pending Labs on day of discharge: Labs from last 24 hours 12/25/19 06:55 WBC 10.36 RBC 2.85 L Hgb 9.0 L Hct 28.3 L MCV 99.3 H MCH 31.6 MCHC 31.8 L RDW 14.5 Plt Count 349 MPV 9.3 PFSH Medical History Depression (Acute 07/10/14) Diabetes mellitus (Chronic) Essential hypertension (Acute 04/22/13) Increased body mass index (BMI) (Acute 08/15/17) Tick bite (Acute) Surgical History (Updated 12/24/19 @ 13:44 by Delon Ni MD) Cholecystectomy HERNIA REPAIR (~2007) -COMPLICATION OF HERNIA REPAIR AT [facility] – [place] TEMPORARY COLOSTOMY reversed History of bowel resection (Acute) History of tonsillectomy and adenoidectomy (Acute) Replacement of total knee joint LEFT 1994. RIGHT 2002 Splenomegaly pt. reports spleen was removed Total replacement of hip (~2008) RIGHT Social History Smoking/Tobacco Use Status: Former Tobacco Use Quit Date: 07/03/76 Tobacco: How many years used: 15 Second Hand Exposure: Yes Alcohol Intake: current Alcohol Intake frequency: a few times a month Alcohol type: wine Drug use: Never Substance use type: former substance user Details: alcohol: 2 weeks. Pt. reports a long time ago for marijuana Adopted: Yes Caregiver/Support person: No Household members: none Housing: house Communication Needs: Hard of Hearing and Corrective Lenses Pets and animals: Yes Pets and animals: cat(s) and dog(s) Sexually active: No Do you think of yourself as: lesbian/cox/homosexual Current gender identity: female What is your relationship status?: How often do you talk on the phone with friends or family?: three or more times per week How often do you get together with friends or relatives?: twice per week How often do you attend gnosticism or mandaeism services?: 4 or more times per year Do you belong to any clubs or organized social groups?: yes Panel score (0-1 are the most socially isolated patients): 3 What type of physical activity do you participate in: other Details: rowing machine Duration: 15-30 minutes/day Frequency: 3-4 times per week Vero/Taoist: Mormon Special vero needs: No Seatbelt use: sometimes Drive intox or ride w/intox equipment driver: No Do you feel safe at home: Yes Do you feel safe in your relationship?: Yes
--- NOTE | 2019-12-25 13:33 | ROE_ITS ---
Date of service: 12/23/19 Time of Service: 10:01 Operative Note Operative Note DATE OF PROCEDURE: 12/23/19 PRE-OP DIAGNOSIS: Osteoarthritis left hip POST-OP DIAGNOSIS: same PROCEDURE: Left total hip replacement SURGEON: Delon Ni SURVEYING CREW RODMAN: Debo Oliver ANESTHESIA: GETA ESTIMATED BLOOD LOSS: 300 PATHOLOGY: none sent COMPLICATIONS: None Patient was transported to: PACU Patient's condition: stable Implants: Size 4 Argyle stem high offset, 52 mm acetabular shell, 52 x 3610 degree polyethylene liner, 36 mm +5 ceramic femoral head. All components were press-fit. Indications: This 7 79-year-old white female with disabling left hip pain of over a years duration. She has previously undergone a right total hip replacement 8 years ago with good results. She has had increasing pain and limitations in ambulation over the past year. She had a C-arm guided left hip injection in July with only 1 months relief. The pain limits her activities of daily living as well as working as a storeroom clerk. Total hip replacement was recommended to alleviate her pain and restore some of her previous amatory abilities. Procedure Description: Patient taken the operating room on 12/23/2019 and placed supine operative table. A general anesthetic was administered. She was then turned onto her right side. The position was maintained by pneumatic beanbag. Left hip was then prepped and draped free in usual sterile fashion. Standard posterior lateral incision was made centered over the greater trochanter. Incision was carried down to the anterior band and gluteus fascia. Subcutaneous veins were cauterized. The heading saw operator band and gluteus fascia were incised in line with the skin incision. Charnley self-retaining retractors were inserted. Using electrocautery the piriformis tendon was released from the posterior femoral neck and a posterior capsulotomy was performed. The femoral head was dislocated. Femoral neck was resected at appropriate angle and level using femoral neck resection guide and oscillating saw. Bone hook was used to mobiliz e the femur anteriorly to visualize the acetabulum. Thickened contracted anterior capsule was excised. The acetabulum was then serially reamed using hemispherical reamers up to a diameter of 52 mm. A 52 mm acetabular shell was then impacted into the prepared acetabulum. An excellent press-fit was obtained. A press-fit was supplemented with one screw through the acetabular shell. Trial liner was placed and attention was turned to the femoral side Femoral canal was then reamed with a straight reamer up to a size 4. The canal was then broached up to a size 3. Trial component was inserted and reduced into the acetabulum. Intraoperative AP x-ray was obtained. The x-ray showed that the acetabular component was in good position. It showed that the femoral stem could be upsized 1 size. Trial components were then removed femoral canal was then broached with a size 4 broach which provided a very tight fit. The actual liner 52 x 36 was with 10 degree rim was placed in the acetabular shell and impacted and locked into place with impactor mallet. The MAHMOOD coated press-fit stem was then impacted into place with the impactor mallet. Care was taken to provide adequate anteversion to the stem. When the stem was fully seated the wound was irrigated with saline solution. 2 g of tranexamic acid and 100 cc of saline were instilled into the wound. The solution was kept in place for 60 seconds before suctioning. +536 mm ceramic femoral head was then placed onto the neck of the stem and impacted and locked in the place with the impactor mallet. The femoral component was then reduced in the acetabulum. Range of motion was checked. The hip was stable in 90 degrees of flexion to greater than 60 degrees of internal rotation. Was also stable with external rotation of the left leg with the hip extended. Left thigh was abducted a Brownlee stand and closure was begun. All visible bleeders were cauterized. The wound margins were obtained 0.5% Marcaine with epinephrine solution. Piriformis tendon was reattached to the posterior edge of the abductor tendon at the tip of the trochanter with interrupted [id number] sutures of #1 Vicryl suture. The iliotibial band and gluteus fascia were approximated interrupted [id number] sutures of #1 Vicryl suture material. Subcu was approximated interrupted 2-0 Vicryl sutures skin edges approximated with skin elkin. Mepilex dressing was applied and then a dressing of ABD pads and foam elastic tape. Patient tolerated the procedure well. Her anesthesia was reversed without complications. Estimated blood loss 300 cc. She was discharged to recovery room in good condition.
--- NOTE | 2019-12-25 14:24 | PDOC.CMDIS ---
- If Service Date Differs Date of service: 12/25/19 Time of Service: 14:25 LACE Index Scoring Tool - Questions: Length of Stay (in days): 3 Acuity (Admit via E.D.?): No Comorbidities: Diabetes w/o Complication E.D. Visits: 1 - Answers: Total Score: 5 Risk of Readmission: Low Risk Care Management Discharge Reason for Hospitalization: L total hip replacement Discharge Plan: Cathryn will return home with new orders of HH PT at this time. She will follow up with Ortho and her discharge plan of care. She will be driven home by friends via private vehicle. She is agreeable to returning home. Patient/Family Education Needs: Review discharge instructions regarding activity levels and medications, discussion of self care needs including ask me three. Services Needed at Discharge: Home Health Care Services ([facility])
--- NOTE | 2019-12-25 16:24 | PDOC.HHF2F_ITS ---
Home Health Certification Home Health Certification: Ovarian cyst use of the wall of the lobe 1. Encounter Date and Reason I certify that ANN REAVES was seen by Delon Ni MD on 12/25/19 and that I had a [id number] encounter with this patient that meets the physician face to face encounter requirements. 2. Clinical Findings Supporting Skilled Need and Homebound Status I certify that home health services are medically necessary, include either intermittent retirement and/or physical/speech therapy, and that this patient is homebound in that absences from the home require considerable and taxing effort and are infrequent or of short duration, or are attributable to the need to receive medical care. [X] (a) Attached documentation from encounter provides clinical findings supporting skilled need and homebound status (including what assistance patient requires to leave the home). The encounter with the patient was in whole, or in part, for the following medical condition, which is the primary reason for home health care: POST-OP L TOTAL HIP Prison: Physical Therapy: Gait and mobility training following total hip replacement on the left. Should follow total hip precautions for 6 weeks postop. Meets criteria for homebound due to recent total hip replacement and lack of transportation to therapy. Speech Therapy: Homebound: 3. Certification and Authentication I certify that I composed the above information based on my clinical judgement relating to this patient's medical condition and, if applicable, clinical findings communicated to me by the NPP or inpatient physician who performed the Home Health Referral. All further orders will be obtained through (Community Based Physician - PCP)
--- NOTE | 2020-01-01 13:46 | PT.INDS ---
Date of service: 01/01/20 Time of Service: 13:46 PT Notes Visit Reasons: POST-OP L TOTAL HIP Inpatient Physical Therapy Discharge Summary Dates: 01/01/2020 Dates of Service: 12/23/2019 through 12/25/2019 This is a clinical summary of care provided on the duration of dates listed above. No charge was made in the completion of this documentation. Referring Doctor: Delon Ni MD PT Orders: PT CONSULT: S/P Ortho surgery. Get OOB in room this afternoon. L total hip precautions. Precautions: Fall. Standard. WBAT on L LE. Total hip precautions on L. Patient Profile/Admitting Diagnosis: Cathryn is a 79-year-old female with primary unilateral osteoarthritis S/P L posterior total hip arthroplasty on postoperative day 2 on discharge. PMHX: Medical History Depression (Acute 07/10/14) Diabetes mellitus (Chronic) Essential hypertension (Acute 04/22/13) Increased body mass index (BMI) (Acute 08/15/17) Tick bite (Acute) Surgical History Cholecystectomy HERNIA REPAIR (~2007) -COMPLICATION OF HERNIA REPAIR AT [facility] – [place] TEMPORARY COLOSTOMY reversed History of tonsillectomy and adenoidectomy (Acute) Replacement of total knee joint LEFT 1994. 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 She had been using a single-point cane in the past several months as it had been getting harder to move about due to her worsening arthritis. She is independent with all aspects of ADLs prior to surgery. 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 She has friends who can be there whenever needed for any kind of support. Equipment Owned/DME: Has FWW, SPC, walk-in shower, hand-held shower head, grab bars Subjective: NT Objective: General Observation: NT Mental Status: NT Pain: NT ROM: Right Upper Extremity: Shoulder Flexion WFL. Shoulder abduction WFL. Elbow flexion WFL. Wrist flexion WFL. Opening and closing of hand WFL. Left Upper Extremity: Shoulder Flexion WFL. Shoulder abduction WFL. Elbow flexion WFL. Wrist flexion WFL. Opening and closing of hand WFL. Right Lower Extremity: Hip flexion WFL. Hip abduction WFL. Knee flexion WFL. Ankle dorsiflexion WFL. Ankle plantarflexion WFL. Left Lower Extremity: Hip flexion tested to 90 degrees only d/t movement precautions. Hip abduction WFL. Knee flexion WFL. Ankle dorsiflexion WFL. Ankle plantarflexion WFL. Strength: Right Upper Extremity: Shoulder flexors 5/5. Shoulder abductors 5/5. Elbow flexors 5/5. Elbow extensors 5/5. Public Relations Studies Director strong. Left Upper Extremity: Shoulder flexors 5/5. Shoulder abductors 5/5. Elbow flexors 5/5. Elbow extensors 5/5. Public Relations Studies Director strong. Right Lower Extremity: Hip flexors 4/5. Hip abductors 4/5. Knee flexors 4/5. Knee extensors 4/5. Ankle dorsiflexors 4/5. Ankle plantarflexors 5/5. Left Lower Extremity:Hip flexors 3-/5. Hip abductors 3+/5. Knee flexors 4-/5. Knee extensors 4-/5. Ankle dorsiflexors 4/5. Ankle plantarflexors 4/5. Sensation: Intact as to pain and pressure on bilateral lower extremities. Bed Mobility/Transfers: Supine to sit independent Sit to stand independent requires use of B hands for support, needs FWW Stand to sit independent requires use of B hands for support, needs FWW Bed to chair independent requires use of B hands for support, needs FWW Gait: UP to 160 feet with FWW. WBAT on L [facility] supervision. Step-through gait pattern. Up-and-down three 4 inch steps and two 6 inch steps holding onto bilateral rails with step to gait pattern with supervision. Balance: Static Sitting: Normal Dynamic Sitting: Normal Static Standing: Fair Dynamic Standing: Fair Assessment: Cathryn demonstrates functional mobility decline requiring the use of front-wheeled walker for all mobility ADL performance, impairments in strength and range of motion, and unsteadiness of gait resulting from postoperative status that can increase fall risk. Cathryn is a 79-year-old female with primary unilateral osteoarthritis S/P L posterior total hip arthroplasty on postoperative day 0. Patient presents with clinical signs and symptoms consistent with current/admitting diagnoses that have resulted to mobility limitations, gait instability, generalized weakness, and impairment of motor control as demonstrated by the following impairment level findings: 1. Decreased strength to L hipmajor muscle groups 2. Impaired sitting/standing balance 3. Impaired activity tolerance 4. Limitation of joint range of motion in L hip Impairments are contributing to the following functional limitations: 1. Dependent bed mobility skills 2. Increased dependence with transfers 3. Inability to safely ambulate without assistive device and physical assistance 4. Increase completion time for mobility ADL performance 5. Increased fall risk 6. Inability to negotiate steps alone safely Goals: Goals X 3 days 1. Supine-Sit independent MET 2. Sit-Supine independent MET 3. Sit-Stand independent MET 4. Stand-Sit independent MET 5. Bed-Chair independent MET 6. Chair-Bed independent MET 7. Independent gait on level surface with use of least restrictive device for at least 300 feet without report of pain nor dyspnea NOT MET 8. Independent stair negotiation while holding onto bilateral rails for at least 5 steps without report of pain nor dyspnea NOT MET 9. Independent with home exercise program NOT MET 10. Good static and dynamic standing balance/tolerance NOT MET DISCHARGE RECOMMENDATIONS: Patient will benefit from home health PT services in order to progress mobility level using least restrictive assistive ambulatory device, assess home safety, identify additional equipment needs, and establish a functional maintenance program that will increase ability of patient to remain at home. TREATMENT CODE/TIME: BELLO Thank you very much for this referral. Josi Harding PT, DPT, CLT [facility] [place], [place]
== END 2019-12-25 15:05 | disposition home or self-care (01) | DRG 470 ==
LOC: PDS 08:40 → MS 11:16
PROVIDERS: Admitting Provider Orthopaedic Surgery; Visit Provider Orthopaedic Surgery
PROC: 0SRB04A Replacement of Left Hip Joint with Ceramic on Polyethylene Synthetic Substitute, Uncemented, Open Approach (ICD-10-PCS; CPT 27130; principal; 2019-12-23 07:30)
DX: M16.12 Unilateral primary osteoarthritis, left hip (principal); M25.552 Pain in left hip; Z96.642 Presence of left artificial hip joint; E11.9 Type 2 diabetes mellitus without complications; I10 Essential (primary) hypertension
CPT/HCPCS: 27130; 36415; 85027; 97110; 97162; 97530; J1650; NC; 72170; 73501; J0131; J0690; J1885; J2001; J2250; J2370; J2704; J3010; L1686

== ENCOUNTER 2020-01-07 09:14 | Outpatient (CLI) | payer MEDICARE, MEDICAID, SELFPAY ==
--- NOTE | 2020-01-07 09:19 | DI.RAD_ITS ---
EXAM: XR HIP LT COMPLETE AP PELVIS INDICATION: f/u thr. COMPARISON: CR XR PELVIS AP from 12/23/2019 CR XR PELVIS AP from 12/23/2019 CR XR HIP LT IN OR from 12/23/2019 TECHNIQUE: 2D digital imaging was performed. FINDINGS: There has been no change in the alignment of the bilateral hip prostheses. No abnormal bony lucencie s are seen. DATA REPOSITORY: RADIATION DOSE DELIVERED:
== END 2020-01-07 09:34 ==
PROVIDERS: Visit Provider Orthopaedic Surgery
DX: Z96.643 Presence of artificial hip joint, bilateral (principal); Z47.1 Aftercare following joint replacement surgery; I10 Essential (primary) hypertension; E11.9 Type 2 diabetes mellitus without complications
CPT/HCPCS: 73502

== ENCOUNTER → 2020-02-04 09:03 | Outpatient (BNVA) | payer MEDICARE, SELFPAY | PROVIDERS: Visit Provider Orthopaedic Surgery | DX: Z47.1 Aftercare following joint replacement surgery (principal); Z96.642 Presence of left artificial hip joint ==

== ENCOUNTER 2020-03-05 04:28 | Outpatient (CLI) | payer MEDICARE, SELFPAY ==
[2020-03-05 14:05] LABS: HCT 37.1 % (36.0-46.0); HGB 12.2 g/dL (11.2-15.7); MCHC 32.9 % (32.0-36.0); MCV 94.4 fL (80-95); MPV 8.9 fL (8.0-11.0); Platelet Count 467 10^3/uL (130-400); RBC 3.93 10^6/uL (3.93-5.22); RDW 13.8 % (11.7-14.6); RDW-SD 47.8 fL; WBC 9.87 10^3/uL (4.4-10.8)
[2020-03-05 15:19] LABS: Iron 29 ug/dL (50-170); Total Iron Binding Capacity 368 ug/dL (250-450)
== END 2020-03-05 04:48 ==
DX: D50.9 Iron deficiency anemia, unspecified (principal)
CPT/HCPCS: 36415; 85027; 83540; 83550

== ENCOUNTER → 2020-04-07 09:01 | Outpatient (BNVA) | payer MEDICARE, MEDICAID, SELFPAY | PROVIDERS: Visit Provider Orthopaedic Surgery | DX: Z47.1 Aftercare following joint replacement surgery (principal); Z96.642 Presence of left artificial hip joint; E11.9 Type 2 diabetes mellitus without complications; I10 Essential (primary) hypertension | CPT/HCPCS: 99213 ==

== ENCOUNTER 2020-04-21 01:39 | Outpatient (CLI) | payer MEDICARE, MEDICAID, SELFPAY ==
[2020-04-21 12:23] LABS: HCT 41.2 % (36.0-46.0); HGB 13.3 g/dL (11.2-15.7)
[2020-04-21 14:03] LABS: Iron 89 ug/dL (50-170)
== END 2020-04-21 01:59 ==
DX: D50.9 Iron deficiency anemia, unspecified (principal); R53.83 Other fatigue
CPT/HCPCS: 36415; 83540; 85014; 85018

== ENCOUNTER → 2020-06-10 10:26 | Outpatient (BNVA) | payer MEDICARE, MEDICAID, SELFPAY | PROVIDERS: Visit Provider Orthopaedic Surgery | DX: Z47.1 Aftercare following joint replacement surgery (principal); Z96.642 Presence of left artificial hip joint; M16.2 Bilateral osteoarthritis resulting from hip dysplasia | CPT/HCPCS: 99213 ==

== ENCOUNTER 2020-09-17 02:57 | Outpatient (CLI) | payer MEDICARE, SELFPAY ==
[2020-09-17 10:34] LABS: Iron 55 ug/dL (50-170)
[2020-09-17 10:55] LABS: ALT 43 U/L (14-59); AST 25 U/L (15-37); Albumin 3.5 g/dL (3.4-5.0); Alkaline Phosphatase 90 U/L (46-116); Anion Gap 5.9 mmol/L (3-11); BUN 25 mg/dL (7-18); Bilirubin, Total 0.3 mg/dL (0.2-1.0); CO2 31.1 mmol/L (21.0-32.0); CREATININE 0.8 mg/dL (0.55-1.02); Chloride 106 mmol/L (98-107); Ferritin 111 ng/mL (8-252); Glucose 108 mg/dL (74-106); Potassium 4.2 mmol/L (3.5-5.1); Sodium 143 mmol/L (136-145); Total Protein 6.8 g/dL (6.4-8.2)
== END 2020-09-17 02:58 | disposition home or self-care (01) ==
LOC: LBO 02:57
DX: D50.9 Iron deficiency anemia, unspecified (principal); I10 Essential (primary) hypertension; R53.83 Other fatigue; E11.9 Type 2 diabetes mellitus without complications
CPT/HCPCS: 36415; 80053; 82728; 83540

== ENCOUNTER 2020-12-14 10:55 | Outpatient (CLI) | payer MEDICARE, MEDICAID, SELFPAY ==
--- NOTE | 2020-12-14 10:15 | DI.RAD_ITS ---
Exam(s) XR HIP LT AP LAT ONLY EXAM: XR HIP LT AP LAT ONLY CLINICAL HISTORY: 1 year. TECHNIQUE: 2D digital imaging was performed. COMPARISON: CR XR HIP LT COMPLETE AP PELVIS from 01/07/2020 FINDINGS: Cross-table lateral view of the left hip prosthesis reveal satisfactory position alignment. No fract ure or loosening evident. IMPRESSION: DATA REPOSITORY: RADIATION DOSE DELIVERED:
--- NOTE | 2020-12-14 10:15 | DI.RAD_ITS ---
Exam(s) XR KNEE LT 3V AP,LAT,[place] EXAM: XR KNEE LT 3V AP,LAT,[place] CLINICAL HISTORY: eval L knee pain, s/p replacement. TECHNIQUE: 2D digital imaging was performed. COMPARISON: Prior images performed January 2020 FINDINGS: There is stable alignment of the components of the left hip prosthesis. No fracture or loosening mari dent. No radiographic evidence of osteomyelitis. IMPRESSION: DATA REPOSITORY: RADIATION DOSE DELIVERED:
== END 2020-12-14 10:56 | disposition home or self-care (01) ==
LOC: DIORS 10:55
PROVIDERS: Visit Provider Student in an Organized Health Care Education/Training Program
DX: T84.84XA Pain due to internal orthopedic prosthetic devices, implants and grafts, initial encounter (principal); Z96.653 Presence of artificial knee joint, bilateral; M70.51 Other bursitis of knee, right knee; M70.52 Other bursitis of knee, left knee; M70.61 Trochanteric bursitis, right hip; M70.62 Trochanteric bursitis, left hip; Z96.643 Presence of artificial hip joint, bilateral; M25.562 Pain in left knee
CPT/HCPCS: 73562; 99213; 73502

== ENCOUNTER 2020-12-23 01:34 | Outpatient (CLI) | payer MEDICARE, MEDICAID, SELFPAY ==
--- NOTE | 2020-12-23 06:30 | DI.NM_ITS ---
Exam(s) NM BONE SCAN 3 PHASE EXAM: NM BONE SCAN 3 PHASE CLINICAL HISTORY: ?LOOSENING,PAINFUL LT KNEE REPLACEMENT,T84.84XA. TECHNIQUE: Injected Dose: 25 mCi Tc-99m MDP performed triple phase over the level of the knees. The re are bilateral knee prostheses. COMPARISON: CR XR PELVIS AP from 12/23/2019 CR XR PELVIS AP from 12/23/2019 CR XR KNEE LT 3V AP,LAT,[place] from 12/14/2020 CR XR KNEE LT 3V AP,LAT,[place] from 12/14/[address] LOWER EXTREMITY LT WO from 12/23/[address] LOWER EXTREMITY LT WO from 12/23/2020 FINDINGS: Perfusion phase: Relatively symmetrical Blood Pool: Relatively symmetrical Delayed: There photopenic zones consistent with the bilateral prostheses. The main findings are in t he left knee. On the delayed 3.5 hour images there is abnormal uptake seen subjacent to the lateral aspect of tibial component which may indicate an element of loosening. There does not appear to be s ignificant increased uptake subjacent to the medial component where there is significant lucent area as seen on plain films and CT scan. IMPRESSION: 1. Abnormal uptake on delayed imaging subjacent to the tibial component of the left knee, laterally Delayed entire skeletal scanning reveals focus of increased activity in the left side of the upper francis mbar spine. DATA REPOSITORY:
--- NOTE | 2020-12-23 08:20 | DI.CT_ITS ---
Exam(s) CT LOWER EXTREMITY LT WO EXAM: CT LOWER EXTREMITY LT WO CLINICAL HISTORY: Pain, ? cyst left tibia,PAINFUL LT TOTAL KNEE REPLACEMENT,T84.84XA,M85.662. TECHNIQUE: Imaging Protocol: Axial computed tomography images with coronal and sagittal reformatted images were created and reviewed. CONTRAST MATERIAL: Intravenous: None COMPARISON: CR XR KNEE LT 2V AP,LAT from 07/17/2019 CR XR KNEE LT 3V AP,LAT,[place] from 12/14/2020 CR XR KNEE LT 3V AP,LAT,[place] from 12/14/2020 FINDINGS: OSSEOUS: There is a left knee prosthesis. There is a joint effusion filling the suprapatellar bursa. There is an abnormal area of lucency subjacent to the medial tibial plateau component which is devoid of trabeculae and exhibits cortical attenuation earlier area of lucency is also seen subjacent to t he medial aspect of the prosthesis. Significant bone loss anteriorly noted; less so posteriorly. No rmal trabecular pattern in the fibular head and neck. No significant osseous findings more distally in the tibia and fibula. There is no obvious abnormality in the femoral condyles.. IMPRESSION: Abnormal lucency within the proximal left tibia subjacent to the tibial component prosthesis. This i s more prominent anteriorly than posteriorly. Cortical breakthrough is seen off the medial of straw off the most medial aspect of proximal aspect of the medial femoral condyle. RADIATION DOSE DELIVERED: 736.3mGy.cm Total DLP DATA REPOSITORY: All CT scans at this facility are submitted to the National Radiology Data Registry (NRDR) Dose Index Registry (DIR) with the [employer] (ACR). RADIATION OPTIMIZATION: All CT scans at this facility use at least one of these dose optimization te chniques: automated exposure control; mA and/or kV adjustment per patient size (includes targeted exa ms where dose is matched to clinical indication); or iterative reconstruction.
== END 2020-12-23 01:54 ==
PROVIDERS: Visit Provider Student in an Organized Health Care Education/Training Program
DX: T84.84XA Pain due to internal orthopedic prosthetic devices, implants and grafts, initial encounter (principal); Z96.652 Presence of left artificial knee joint; M85.662 Other cyst of bone, left lower leg; M25.462 Effusion, left knee
CPT/HCPCS: 73700; 78315

== ENCOUNTER 2021-01-18 14:54 | Outpatient (CLI) | payer MEDICARE, MEDICAID, SELFPAY ==
--- NOTE | 2021-01-18 | DI.CT_ITS ---
Exam(s) CT ABDOMEN PELVIS W EXAM: CT ABDOMEN PELVIS W CLINICAL HISTORY: ABD PAIN, R10.9. TECHNIQUE: Imaging Protocol: Axial computed tomography images with coronal and sagittal reformatted images were created and reviewed CONTRAST MATERIAL: Intravenous: Omnipaque 350 Contrast volume:100 ml Oral: yes COMPARISON: CT CHEST ABD PELVIS WO CONTRAST from 11/28/2016 FINDINGS: ABDOMEN: Exam is somewhat limited by patient body habitus. Lung Bases: Normal where visualized. Enlarged heart, particularly left ventricle. Liver: Normal density. No measurable mass. Gallbladder and biliary tract: Status post cholecystectomy. No radiodense calculus or dilation. Pancreas: Somewhat atrophic. Normal density, no abnormal calcifications or inflammatory process. Spleen: Status post splenectomy with regrowth splenic nodules in the left upper quadrant. Kidneys: Normal size, contour and axis. Multiple small nonobstructing bilateral renal calculi. Bilat eral small renal cysts. No masses seen. Adrenal glands: Stable prominence of left adrenal gland. No masses seen. Abdominal Aorta: Abdominal portion non-dilated. Mild atherosclerotic changes. PELVIS: Exam somewhat limited by streak artifact from bilateral hip prostheses and by patient body teague bitus.. There is thinning of the anterior abdominal wall. There is a large inferior pannus containing loops of bowel. There is no obstruction. Bladder: Partially obscured no gross wall thickening. No calculi.No focal mass. Bowel: No obstruction or bowel wall thickening. Appendix normal. Peritoneal cavity: No ascites, collection or mesenteric inflammatory response. Bones: Bilateral hip prostheses create artifact in the pelvis. Degenerative changes are noted in the lower thoracic and lumbar spine. Reproductive organs: Partially obscured. Uterine fibroids. Lymph nodes: Unremarkable. Impression: Bilateral nephrolithiasis no hydronephrosis or ureteral calculi. No acute abnormality in the abdomen or pelvis. RADIATION DOSE DELIVERED: 1,333.46mGy.cm Total DLP DATA REPOSITORY: All CT scans at this facility are submitted to the National Radiology Data Registry (NRDR) Dose Index Registry (DIR) with the [employer] (ACR). RADIATION OPTIMIZATION: All CT scans at this facility use at least one of these dose optimization te chniques: automated exposure control; mA and/or kV adjustment per patient size (includes targeted exa ms where dose is matched to clinical indication); or iterative reconstruction.
[2021-01-18] MEDS: Breeza Beverage 473 ML BTL PO ×2 (15:03→15:05)
[2021-01-18 15:15] LABS: CREATININE 0.9 mg/dL (0.55-1.02)
[2021-01-18 15:33] LABS: Iron 99 ug/dL (50-170)
[2021-01-18] MEDS: Omnipaque 350 MG/ML 100 ML BTL IJ (16:37)
[2021-01-18] MEDS: Normal Saline - Diluent 50 ML VIAL IV (16:38)
--- NOTE | 2021-01-18 17:00 | DI.VRAD_ITS ---
PROCEDURE INFORMATION: Exam: CT Abdomen And Pelvis With Contrast Exam date and time: 01/18/2021 4:02 PM Age: 80 years old Clinical indication: Abdominal pain; Localized; Lower; Prior surgery; Patient HX: Abd pain TECHNIQUE: Imaging protocol: Computed tomography of the abdomen and pelvis with contrast. COMPARISON: CT CHEST ABD PELVIS WO CONTRAST 11/28/2016 5:06 PM FINDINGS: Heart: Cardiomegaly. Liver: Normal. No mass. Gallbladder and bile ducts: Cholecystectomy. Pancreas: Normal. No ductal dilation. Spleen: Multiple splenules. Adrenal glands: Stable benign appearing thickening of the left adrenal gland. Kidneys and ureters: Multiple nonobstructing stones in both kidneys. The largest is in the lower left kidney and measures approximately 7 mm. No evidence of urinary obstruction. 1.6 cm low-density lesion upper pole left kidney. This is not a simple cyst. This is new compared with 10/06/2016. New cortical scarring upper pole left kidney. 7 mm benign cyst posterior mid left kidney. Several small benign cysts in the right kidney. Duplicated right renal pelvis. The ureters also appear duplicated at least down to the lower ureter where it is difficult to follow their course. Stomach and bowel: No evidence of obstruction. Portions of the right colon are excluded from the field of view due to large patient's body habitus and the presence of a large ventral pannus. Small esophageal hiatal hernia. Appendix: No evidence of appendicitis. Intraperitoneal space: Unremarkable. No free air. No significant fluid collection. Vasculature: Unremarkable. No abdominal aortic aneurysm. Lymph nodes: Unremarkable. No enlarged lymph nodes. Urinary bladder: Unremarkable as visualized. Reproductive: Fibroid uterus. Bones/joints: Bilateral total hip arthroplasties. Degenerative arthritis in the spine and pelvis. Soft tissues: Large ventral abdominal wall hernia with the pannus extending inferiorly and to the right. Other findings: Metallic artifact obscures detail in the pelvis. IMPRESSION: 1. 1.6 cm low-density lesion upper pole left kidney is not definitely a cyst. Ultrasound recommended 2. Large ventral abdominal wall hernia with a pannus extending to the right. 3. Nonobstructing stones in both kidneys. Dictated and Authenticated by: Damaris Eli MD. Ordering:BERNARDA Collins MD
== END 2021-01-18 15:14 ==
PROVIDERS: Visit Provider Physician Assistant Medical
DX: Z13.9 Encounter for screening, unspecified (principal); N20.0 Calculus of kidney; K43.9 Ventral hernia without obstruction or gangrene; N28.9 Disorder of kidney and ureter, unspecified
CPT/HCPCS: 74177; 82565; 83540; J3490

== ENCOUNTER 2021-02-01 13:47 | Outpatient (CLI) | payer MEDICARE, MEDICAID, SELFPAY | END 2021-02-01 13:48 | disposition home or self-care (01) | LOC: DIORS 13:48 | PROVIDERS: Visit Provider Student in an Organized Health Care Education/Training Program | DX: T84.84XD Pain due to internal orthopedic prosthetic devices, implants and grafts, subsequent encounter (principal); Z96.652 Presence of left artificial knee joint | CPT/HCPCS: 99212 ==

== ENCOUNTER 2021-05-28 12:43 | Outpatient (REF) | payer MEDICARE, MEDICAID, SELFPAY ==
[2021-05-30 12:37] LABS: COVID-19 RT-PCR UVMMC Result Negative (Negative)
== END 2021-05-28 12:44 | disposition home or self-care (01) ==
LOC: LBN 12:43
DX: Z20.822 Contact with and (suspected) exposure to COVID-19 (principal)
CPT/HCPCS: U0003

== ENCOUNTER 2021-10-19 14:20 | Emergency (ER) | payer MEDICARE, MEDICAID, SELFPAY ==
[2021-10-19 14:28] VITALS: BP 149/66; PULSE 75; RESP 18; TEMP 36.7; O2SAT 96
--- NOTE | 2021-10-19 14:30 | DI.CT_ITS ---
Exam(s) CT ABDOMEN PELVIS W EXAM: CT ABDOMEN PELVIS W CLINICAL HISTORY: abdominal pain, asplenic, hx of perf. TECHNIQUE: Imaging Protocol: Axial computed tomography images with coronal and sagittal reformatted images were created and reviewed CONTRAST MATERIAL: Intravenous: Omnipaque 100cc Oral: None COMPARISON: CT CT ABDOMEN PELVIS W from 01/18/2021 FINDINGS: VISUALIZED LUNG BASES: No nodules nor pleural effusions evident. ABDOMEN: There is no ascites. LIVER: There are no focal hepatic lesions evident . GALLBLADDER/BILIARY: Gallbladder surgically absent. CBD is not significantly dilated. PANCREAS: No evidence of pancreatic mass nor dilatation of the pancreatic duct. SPLEEN: Definitive spleen is not seen. Instead there are multiple splenule XXXX in left upper quadra nt . there is a patent splenic vein evident. Portal vein confluence is patent as is the main and int rahepatic portal veins. ADRENALS: Right adrenal gland unremarkable. Nodular density in the left adrenal gland is unchanged, measuring approximately 2.2 by 2 cm. KIDNEYS:There are multiple small nonobstructive calculi in both kidneys. Largest of these is in the inferior pole calyx of the left kidney and measures 8 x 6 millimeters. There also multiple small emiliano ateral cortical cysts. Largest of these measures 1.5 cm. No hydronephrosis no hydroureter. Urinary bladder cannot be assessed because of beam hardening artifact from the bilateral hip prostheses.. ABDOMINAL AORTA: Abdominal aorta is not enlarged. LYMPH NODES:There is no retroperitoneal nor paraaortic adenopathy. ABDOMINAL WALL: No evidence of significant anterior abdominal wall nor inguinal hernia. GI: There is no evidence of bowel obstruction, free air, nor abscess. PELVIS: GI: No evidence of appendicitis.No evidence of sigmoid diverticulitis. LYMPH NODES: There is no intrapelvic nor inguinal adenopathy. REPRODUCTIVE: Uterus is difficult to evaluate because of beam hardening artifact from the bilateral h ip prostheses. There appear to be uterine fibroids, noncalcified. URINARY BLADDER: No calculi nor obvious masses evident OSSEOUS: Bilateral hip prostheses. No lytic nor blastic osseous lesions identified. IMPRESSION: 1. Compared to the prior CT scan of December 2020 there are again noted multiple bilateral nonobstructive calculi in the kidneys as well as multiple small benign cysts in both kidneys. 2. There has apparently been prior splenectomy. There are multiple small splenules in the left upper quadrant and there is a patent splenic vein noted. 3. Uterine fibroids. No significant adnexal masses. No free fluid 4. Bilateral hip prostheses again noted. Previous cholecystectomy. No significant dilatation of the biliary tree. RADIATION DOSE DELIVERED: 1,255.27mGy.cm Total DLP DATA REPOSITORY: All CT scans at this facility are submitted to the National Radiology Data Registry (NRDR) Dose Index Registry (DIR) with the [employer] (ACR). RADIATION OPTIMIZATION: All CT scans at this facility use at least one of these dose optimization te chniques: automated exposure control; mA and/or kV adjustment per patient size (includes targeted exa ms where dose is matched to clinical indication); or iterative reconstruction.
[2021-10-19 14:57] LABS: Bilirubin Negative (Negative); Blood Trace-intact (Negative); Clarity Clear (Clear); Glucose Negative (Negative); Ketones Negative (Negative); Leukocyte Esterase Negative (Negative); Nitrite Negative (Negative); Urobilinogen 0.2 EU/dL (Up TO 0.2)
[2021-10-19 15:01] LABS: Abs Immature Grans 0.01 10^3/uL (0.0-0.06); Absolute Basophil Count 0.05 10^3/uL (0.0-0.2); Absolute Eosinophil Count 0.18 10^3/uL (0.0-0.7); Absolute Monocyte Count 0.74 10^3/uL (0.1-0.8); Absolute Neutrophil Count 4.96 10^3/uL (1.2-6.7); Basophils % 0.6; Eosinophils % 2.2; HCT 40.5 % (36.0-46.0); HGB 13.2 g/dL (11.2-15.7); Immature Grans % 0.1; Lymphocytes % 27.9; MCH 30.9 pg (27.0-33.0); MCHC 32.6 % (32.0-36.0); MCV 95 fL (80-95); Neutrophils % 60.2; Platelet Count 437 10^3/uL (130-400); RBC 4.27 10^6/uL (3.93-5.22); RDW 13.8 % (11.7-14.6); RDW-SD 47.8 fL; WBC 8.24 10^3/uL (4.4-10.8)
--- NOTE | 2021-10-19 15:01 | W.ED.GENAD ---
Discharge Plan Disposition Patient Disposition: HOME Condition: Stable Discharge Details Clinical Impression: Hypokalemia, Abdominal pain Primary Care Provider: Arlyn Shah ED Provider: Carolyn Gage Home Meds and New Rx's Prescriptions: New potassium chloride 20 mEq tablet,ER particles/crystals 20 meq PO DAILY Qty: 10 0RF Continued polyethylene glycol 3350 17 gram/dose powder 17 g PO DAILY Qty: 510 0RF multivitamin 1 EACH tablet 1 ea PO DAILY 0RF cholecalciferol (vitamin D3) 1,000 UNIT capsule 1,000 unit PO DAILY 0RF gabapentin 300 mg capsule 300 mg PO BID Qty: 180 3RF Rx Instructions: TAKE 1 TABLET BY MOUTH TWO TIMES DAILY amlodipine 5 mg tablet 5 mg PO QAM Qty: 90 4RF Rx Instructions: 1 TAB QAM citalopram [Celexa] 20 mg tablet 20 mg PO DAILY Qty: 90 3RF omeprazole 20 mg capsule,delayed release(DR/EC) 20 mg PO DAILY Qty: 90 4RF hydrochlorothiazide 25 mg tablet 25 mg PO QAM Qty: 90 3RF atenolol 25 mg Tablet 25 mg PO DAILY 0RF Label Comments: Pt reports she does not know the dosage. ICaps AREDS [id number] Capsule 0RF Rx Instructions: 1 cap orally ibuprofen 800 mg Tablet 800 mg PO Q6H 0RF acetaminophen [Tylenol] 325 mg capsule 650 mg PO Q6H PRN0RF Discharge Instructions Instructions: Hypokalemia (ED), Abdominal Pain (ED) Additional Instructions: Take Tylenol as needed for pain Take potassium as prescribed Talk to your doctor about whether or not to continue taking hydrochlorothiazide Return with worsening pain, fever, chills, or with any new or worsening complaints Referrals: Arlyn Shah, SPANISH TRANSLATOR [Primary Care Provider] - Discharge Data Discharge Date/Time-TO BE ENTERED AT DEPARTURE: 10/19/21 16:45 Medical Decision Making Hypokalemia, EKG does not show acute abnormality Given 40 mEq of p.o. potassium, will need potassium her home Abdominal exam is relatively benign without evidence of peritonitis, stable for discharge home if CT does not show evidence acute surgical pathology 3 views do not show evidence of acute abnormality, patient aware apply to affected kidney disease No evidence of infectious etiology of patient complaint family will follow up with her PCP No indication for antibiotics at this time Return precautions discussed with patient she expressed understanding Medical Records Medical records reviewed: Yes I reviewed the patient's medical records. Lab Data Lab results reviewed: Yes I reviewed the patient's lab results. HPI General Date/Time Provider Initiated Documentation: 10/19/21 14:23. HPI Narrative: This 81-year-old female presents with left lower quadrant abdominal pain for the past several days has been worsening. She has a history of diverticulitis with perforation and asplenia and is concerned regarding possible early diverticulitis. Denies any fever or chills. Denies any chest pain or shortness of breath. Denies any nausea or vomiting. Denies any blood in stool or vomitus. Denies any exacerbating or alleviating factors. Related Data Home Medications Medication Instructions Recorded Confirmed cholecalciferol (vitamin D3) 25 1,000 unit PO DAILY 10/11/12 10/19/21 mcg (1,000 unit) capsule multivitamin 1 ea PO DAILY 10/11/12 10/19/21 vitamins A,C,J-zoeo-svpbpy 14,320 07/22/19 10/19/21 unit-226 mg-200 unit capsule (ICaps AREDS) ibuprofen 800 mg tablet 800 mg PO Q6H 07/29/19 10/19/21 atenolol 25 mg tablet 25 mg PO DAILY 12/23/19 10/19/21 gabapentin 300 mg capsule 300 mg PO BID #180 cap 06/23/20 10/19/21 acetaminophen 325 mg capsule 650 mg PO Q6H PRN cap 09/07/20 10/19/21 (Tylenol) polyethylene glycol 3350 17 17 g PO DAILY #510 g 10/19/20 10/19/21 gram/dose oral powder amlodipine 5 mg tablet 5 mg PO QAM #90 tab-cap 10/23/20 10/19/21 citalopram 20 mg tablet (Celexa) 20 mg PO DAILY #90 tab-cap 11/06/20 10/19/21 omeprazole 20 mg capsule,delayed 20 mg PO DAILY #90 cap 07/01/21 10/19/21 release hydrochlorothiazide 25 mg tablet 25 mg PO QAM #90 tab 07/13/21 10/19/21 potassium chloride 20 mEq 20 meq PO DAILY #10 tab 10/19/21 tablet,extended release(part/cryst) Previous Rx's Medication Instructions Recorded gabapentin 300 mg capsule 300 mg PO BID #180 cap 06/23/20 polyethylene glycol 3350 17 17 g PO DAILY #510 g 10/19/20 gram/dose oral powder amlodipine 5 mg tablet 5 mg PO QAM #90 tab-cap 10/23/20 citalopram 20 mg tablet (Celexa) 20 mg PO DAILY #90 tab-cap 11/06/20 omeprazole 20 mg capsule,delayed 20 mg PO DAILY #90 cap 07/01/21 release hydrochlorothiazide 25 mg tablet 25 mg PO QAM #90 tab 07/13/21 potassium chloride 20 mEq 20 meq PO DAILY #10 tab 10/19/21 tablet,extended release(part/cryst) Allergies Allergy/AdvReac Type Severity Reaction Status Date / Time indomethacin Allergy Unknown pt does Verified 10/19/21 13:50 not recall taking it General Stated Complaint: Abd Prob JIGNA: 3 Review of Systems All systems reviewed & are unremarkable except as noted in HPI and below PFSH All Active Problems (Updated 10/19/21 @ 16:35 by BOB Hendrickson) Hypokalemia (Acute) Abdominal pain (Acute) Conductive hearing loss, external ear (Acute) Impacted cerumen, bilateral (Acute) Abdominal pain (Acute) Greater trochanteric bursitis of both hips (Acute) Pes anserinus bursitis of both knees (Acute) Painful total knee replacement, left (Acute) Strength loss of (Acute) Postoperative pain (Acute) Constipation due to pain medication therapy (Acute) Iron deficiency anemia (Acute) Fatigue (Acute) Status post total hip replacement, left (Acute 12/23/19) Fever (Acute) Transaminitis (Acute) TERRY (acute kidney injury) (Acute) History of partial surgical removal of colon (Acute) Chronic pain disorder (Acute) Sensorineural hearing loss, bilateral (Acute 03/24/16) Osteoarthritis of hip (Acute 11/16/12) s/p Right THR 2011, Left ROSI 2019 (paul) Impaired fasting glucose (Acute 03/06/14) Hyperlipidemia (Acute 11/16/12) 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 Diverticulitis (Acute) s/p ruptured diverticulitis Dermatitis (Acute 05/22/17) Colon polyp (Acute 12/29/14) [facility], tubular adenoma Anemia (Acute 04/19/12) Abdominal pain (Acute) ABD WALL HERNIA-REPAIR [facility] 2007 Keratosis, seborrheic (Acute) Trochanteric bursitis, left hip (Acute) Left hip pain (Acute) Osteoarthritis of left hip (Acute) Tick bite (Acute) Diabetes mellitus (Chronic) Depression (Acute 07/10/14) Increased body mass index (BMI) (Acute 08/15/17) Essential hypertension (Acute 04/22/13) Active Problem List Conductive hearing loss, external ear (Acute) Impacted cerumen, bilateral (Acute) Abdominal pain (Acute) Greater trochanteric bursitis of both hips (Acute) Pes anserinus bursitis of both knees (Acute) Painful total knee replacement, left (Acute) Strength loss of (Acute) Postoperative pain (Acute) Constipation due to pain medication therapy (Acute) Iron deficiency anemia (Acute) Fatigue (Acute) Status post total hip replacement, left (Acute 12/23/19) Fever (Acute) Transaminitis (Acute) TERRY (acute kidney injury) (Acute) History of partial surgical removal of colon (Acute) Chronic pain disorder (Acute) Sensorineural hearing loss, bilateral (Acute 03/24/16) Osteoarthritis of hip (Acute 11/16/12) Impaired fasting glucose (Acute 03/06/14) Hyperlipidemia (Acute 11/16/12) History of splenectomy (Acute 11/16/12) Diverticulitis (Acute) Dermatitis (Acute 05/22/17) Colon polyp (Acute 12/29/14) Anemia (Acute 04/19/12) Abdominal pain (Acute) Keratosis, seborrheic (Acute) Trochanteric bursitis, left hip (Acute) Left hip pain (Acute) Osteoarthritis of left hip (Acute) Tick bite (Acute) Diabetes mellitus (Chronic) Depression (Acute 07/10/14) Increased body mass index (BMI) (Acute 08/15/17) Essential hypertension (Acute 04/22/13) Medical History Former smoker (07/10/14) Postmenopausal bleeding Rectal hemorrhage Tinnitus UTI (urinary tract infection) Surgical History Cholecystectomy HERNIA REPAIR (~2007) -COMPLICATION OF HERNIA REPAIR AT [facility] TEMPORARY COLOSTOMY reversed History of bowel resection History of tonsillectomy and adenoidectomy Replacement of total knee joint LEFT 1994. RIGHT 2002 Splenomegaly pt. reports spleen was removed Total replacement of hip (~2008) RIGHT Family History Sister No problems noted. Other Adopted Social History Smoking/Tobacco Use Status: Former Tobacco Use Quit Date: 07/03/76 Tobacco: How many years used: 20 Second Hand Exposure: Yes Smoking risk assessment performed?: Yes Alcohol Intake: current Alcohol Intake frequency: holidays/special occasions only Alcohol type: wine Drug use: Never Substance use type: does not use Counseling given: No Counseling provided: none Details: alcohol: 2 weeks. Pt. reports a long time ago for marijuana Adopted: Yes Caregiver/Support person: No Household members: none Housing: house Communication Needs: Hard of Hearing and Corrective Lenses Pets and animals: Yes Pets and animals: cat(s) and dog(s) Sexually active: No Do you think of yourself as: lesbian/cox/homosexual Current gender identity: female What is your relationship status?: How often do you talk on the phone with friends or family?: three or more times per week How often do you get together with friends or relatives?: twice per week How often do you attend mormonism or denominational services?: 4 or more times per year Do you belong to any clubs or organized social groups?: yes Panel score (0-1 are the most socially isolated patients): 3 What type of physical activity do you participate in: other Details: rowing machine Duration: 15-30 minutes/day Frequency: 3-4 times per week Vero/Catholic: Mandaeism Special vero needs: No Seatbelt use: sometimes Drive intox or ride w/intox local company flatbed truck driver: No Do you feel safe at home: Yes Do you feel safe in your relationship?: Yes Exam Const General: cooperative, comfortable and no acute distress Eyes Sclera: sclerae normal Resp Effort & Inspection: normal respiratory effort Auscultation: clear to auscultation bilaterally Cardio Rate: regular rate Rhythm: regular rhythm GI Inspection: normal to inspection Other: left lower abdominal tenderness no rebound or guarding no cva tenderness no abdominal bruit or pulsatile mass Skin General skin exam: no rashes or lesions noted Neuro General: patient alert and patient oriented x3 Extrem Other: distal pulses intact Course Vital Signs Vital signs: Vital Signs Temperature 36.7 C 10/19/21 14:28 Pulse 75 10/19/21 14:28 Respiratory Rate 18 10/19/21 14:28 Blood Pressure 149/66 H 10/19/21 14:28 Pulse Oximetry 96 10/19/21 14:28 Temperature 36.7 C 10/19/21 14:28 Temperature Source Temporal Artery Scan 10/19/21 14:28 Pulse 75 10/19/21 14:28 Respiratory Rate 18 10/19/21 14:28 Respiratory Effort Non-Labored 10/19/21 14:31 Blood Pressure 149/66 H 10/19/21 14:28 Blood Pressure Position Sitting 10/19/21 14:28 Pulse Oximetry 96 10/19/21 14:28 Oxygen Delivery Method Room Air 10/19/21 14:28 Oxygen Flow Rate 0 10/19/21 14:28
--- NOTE | 2021-10-19 15:15 | RT.EKG_ITS ---
APPROVED REPORT Exam: Resting ECG Reason for Exam: hypokal Patient Location: E HR:83 bpm ECG Measurements Heart Rate 83 AXIS UT 209 P 50 QRSd 110 QRS 9 QT 391 T 29 QTc 461 Conclusion Sinus rhythm...normal P axis, V-rate 60- 99. Sinus. No STEMI. I have reviewed and interpreted ECG and agree with software generated interpretation.
[2021-10-19 15:16] LABS: ALT 34 U/L (14-59); AST 21 U/L (15-37); Albumin 3.7 g/dL (3.4-5.0); Alkaline Phosphatase 82 U/L (46-116); BUN 27 mg/dL (7-18); Bilirubin, Total 0.4 mg/dL (0.2-1.0); Calcium 9.8 mg/dL (8.5-10.1); Chloride 101 mmol/L (98-107); Estimated GFR 53.35 (mL/min/1.73m2); Glucose 95 mg/dL (74-106); Lipase 93 U/L (73-393); Sodium 138 mmol/L (136-145); Total Protein 7.5 g/dL (6.4-8.2)
[2021-10-19 15:18] LABS: Potassium 2.9 mmol/L (3.5-5.1)
[2021-10-19] MEDS: Omnipaque 350 MG/ML 100 ML BTL IJ (15:31)
[2021-10-19] MEDS: Normal Saline Flush 10 ML SYR IVP (15:32)
[2021-10-19 15:38] LABS: Bacteria Negative HPF (Negative); C & S Indicated? No; Crystals Negative HPF (Negative); Epithelial Cells Few HPF (Negative); Mucus Negative (Negative); WBC 0-2 HPF (0-5)
[2021-10-19] MEDS: Potassium Chloride 20 MEQ TABCR 40 MEQ PO (15:55)
[2021-10-19 16:44] VITALS: BP 119/74; PULSE 77; RESP 18; O2SAT 93
== END 2021-10-19 16:45 | disposition home or self-care (01) ==
PROVIDERS: Emergency Provider Physician Assistant
DX: E87.6 Hypokalemia (principal); R10.32 Left lower quadrant pain
CPT/HCPCS: 36415; 80053; 83690; 93005; 99285; 74177; 81003; 81015; 85025; 93010; 99283; J3490

== ENCOUNTER 2021-12-17 07:27 | Outpatient (CLI) | payer MEDICARE, MEDICAID, SELFPAY ==
[2021-12-17 10:57] LABS: Anion Gap 6.5 mmol/L (3-11); BUN 26 mg/dL (7-18); CO2 28.5 mmol/L (21.0-32.0); CREATININE 0.9 mg/dL (0.55-1.02); Calcium 9.2 mg/dL (8.5-10.1); Chloride 108 mmol/L (98-107); Glucose 100 mg/dL (74-106); Potassium 3.9 mmol/L (3.5-5.1); Sodium 143 mmol/L (136-145)
== END 2021-12-17 07:28 | disposition home or self-care (01) ==
LOC: LBO 07:28
DX: E87.1 Hypo-osmolality and hyponatremia (principal); G89.4 Chronic pain syndrome; R10.9 Unspecified abdominal pain
CPT/HCPCS: 36415; 80048

== ENCOUNTER 2022-01-12 03:07 | Outpatient (CLI) | payer MEDICARE, MEDICAID, SELFPAY ==
[2022-01-12 15:34] LABS: Potassium 3.7 mmol/L (3.5-5.1)
== END 2022-01-12 03:08 | disposition home or self-care (01) ==
LOC: LBO 03:07
DX: I10 Essential (primary) hypertension (principal); E87.6 Hypokalemia
CPT/HCPCS: 36415; 84132

== ENCOUNTER 2022-06-20 22:05 | Outpatient (REF) | payer MEDICARE, SELFPAY | END 2022-06-20 22:06 | disposition home or self-care (01) | LOC: LBN 22:05 | PROVIDERS: PCP Nurse Practitioner Family; Visit Provider Nurse Practitioner Family | DX: L72.3 Sebaceous cyst (principal); L03.312 Cellulitis of back [any part except buttock and flank] | CPT/HCPCS: 87070; 87205 ==

== ENCOUNTER 2023-01-04 01:54 | Outpatient (CLI) | payer MEDICARE, MEDICAID, SELFPAY ==
--- NOTE | 2023-01-04 07:30 | DI.RAD_ITS ---
Exam(s) XR WRIST LT COMPLETE EXAM: XR WRIST LT COMPLETE CLINICAL HISTORY: increasing pain, ulnar aspect, M25.532. TECHNIQUE: 2D digital imaging was performed. Three views. COMPARISON: CR LEFT HAND COMPLETE from 04/29/2010 FINDINGS: BONES: No acute fracture is present. No bony destructive lesion is seen. Degenerative cyst in the l unate. JOINTS: The carpal bones are normally aligned. There are severe degenerative changes of the 1st carpal metacarpal joint with obliteration of the pippa nt space and prominent periarticular spurring. Severe degenerative changes are also seen at the blanca te capitate joint. Chronic appearing bony density seen near trapezium. SOFT TISSUE: Normal. IMPRESSION: Severe degenerative changes at the 1st carpal metacarpal joint and capitate lunate joint. DATA REPOSITORY: RADIATION DOSE DELIVERED:
--- NOTE | 2023-01-04 07:30 | DI.US_ITS ---
Exam(s) US SOFT TISS EXTREMITY/GROIN EXAM: US SOFT TISS EXTREMITY/GROIN CLINICAL HISTORY: right wrist mass, ulnar aspect, R22.31. TECHNIQUE: Ultrasound was performed using standard protocol. COMPARISON: No exams were available for comparison FINDINGS: Sonographic assessment utilizing grayscale and color Doppler imaging was performed and targeted to th e area of clinical concern. Palpable abnormality corresponds to an ovoid circumscribed area of nodularity measuring 9 x 3 x 8 mil limeters. It contains considerable vascularity. It does not have the appearance of a lipoma or a ga nglion cyst. Findings could represent a giant cell tumor of the tendon sheath or hemangioma. IMPRESSION: Palpable abnormality could represent a giant cell tumor of the tendon sheath or hemangioma. DATA REPOSITORY:
--- NOTE | 2023-01-04 11:32 | DI.RAD_ITS ---
Exam(s) XR SHOULDER LT COMPLETE 2+V EXAM: XR SHOULDER LT COMPLETE 2+V CLINICAL HISTORY: increasing pain, M25.512. TECHNIQUE: 2D digital imaging was performed. Three views. COMPARISON: None FINDINGS: BONES: No acute fracture is present. No bony destructive lesion is seen. Prominent spurring at tip o f acromion. Rounded density in the proximal humeral shaft likely a bone island. Extensive degenerat chandler changes in the thoracic spine. JOINTS: No dislocation present. Mild spurring at AC joint. Severe narrowing of the glenohumeral pippa nt space. Prominent spurring at the inferior glenoid and inferior humeral head. SOFT TISSUE: Normal. Visualized portions of the lung are clear. IMPRESSION: Severe degenerative changes of the glenohumeral joint. DATA REPOSITORY: RADIATION DOSE DELIVERED:
== END 2023-01-04 02:14 ==
LOC: DI 01:57
PROVIDERS: PCP Nurse Practitioner Family; Visit Provider Nurse Practitioner Family
DX: M18.12 Unilateral primary osteoarthritis of first carpometacarpal joint, left hand (principal)
CPT/HCPCS: 76882; 73030; 73110

== ENCOUNTER 2023-01-31 03:26 | Outpatient (CLI) | payer MEDICARE, MEDICAID, SELFPAY ==
[2023-01-31 09:29] LABS: HCT 41.5 % (36.0-46.0); HGB 13.8 g/dL (11.2-15.7); MCH 31.8 pg (27.0-33.0); MCHC 33.3 % (32.0-36.0); MCV 96 fL (80-95); MPV 9.3 fL (8.0-11.0); Platelet Count 452 10^3/uL (130-400); RBC 4.34 10^6/uL (3.93-5.22); RDW 14.2 % (11.7-14.6); WBC 7.08 10^3/uL (4.4-10.8)
[2023-01-31 09:54] LABS: Iron 63 ug/dL (50-170)
[2023-01-31 09:55] LABS: ALT 26 U/L (14-59); AST 21 U/L (15-37); Albumin 3.3 g/dL (3.4-5.0); Alkaline Phosphatase 81 U/L (46-116); Anion Gap 6.5 mmol/L (3-11); BUN 24 mg/dL (7-18); Bilirubin, Total 0.5 mg/dL (0.2-1.0); CO2 30.5 mmol/L (21.0-32.0); CREATININE 0.8 mg/dL (0.55-1.02); Calcium 9.6 mg/dL (8.5-10.1); Chloride 106 mmol/L (98-107); Estimated GFR 73.98 (mL/min/1.73m2); Glucose 109 mg/dL (74-106); Potassium 3.6 mmol/L (3.5-5.1); Sodium 143 mmol/L (136-145); TSH (W/Ref FT4) 1.02 uIU/mL (0.36-3.74); Total Protein 7.1 g/dL (6.4-8.2)
== END 2023-01-31 03:27 | disposition home or self-care (01) ==
PROVIDERS: PCP Nurse Practitioner Family; Visit Provider Nurse Practitioner Family
DX: R53.83 Other fatigue (principal); D50.9 Iron deficiency anemia, unspecified; E78.5 Hyperlipidemia, unspecified; I10 Essential (primary) hypertension; F34.9 Persistent mood [affective] disorder, unspecified
CPT/HCPCS: 36415; 80053; 85027; 83540; 84443

== ENCOUNTER → 2023-02-10 00:20 | Outpatient (CLI) | payer MEDICARE, MEDICAID, SELFPAY ==
--- NOTE | 2023-02-10 11:10 | DI.RAD_ITS ---
Exam(s) XR HAND RT COMPLETE EXAM: XR HAND RT COMPLETE CLINICAL HISTORY: increased pain, LROM,M79.641. TECHNIQUE: 2D digital imaging was performed of the right hand. Three images were obtained. AP, late ral and oblique views were obtained. COMPARISON: CR RIGHT HAND COMPLETE from 04/29/2010 FINDINGS: BONES: No acute fracture is present. No bony destructive lesion is seen. JOINTS: No dislocation present. There are marked degenerative changes seen in the right hand characte rized by joint space narrowing and osteophytes. The findings are most marked at the 1st CMC joint. SOFT TISSUE: Dystrophic calcifications are seen in the soft tissues of the 2nd finger. IMPRESSION: Marked osteoarthritis of the hand. The findings have significantly advanced since the prior examinat ion from 2009. DATA REPOSITORY: RADIATION DOSE DELIVERED:
--- NOTE | 2023-02-10 11:10 | DI.RAD_ITS ---
Exam(s) XR SHOULDER RT COMPLETE 2+V EXAM: XR SHOULDER RT COMPLETE 2+V CLINICAL HISTORY: increased pain,M25.511. TECHNIQUE: 2D digital imaging was performed of the right shoulder. Five images were obtained. AP, Grashey, Y-view and axillary views were obtained. COMPARISON: CR CHEST 2 VIEWS PA,LAT from 12/07/2016 FINDINGS: BONES: No acute fracture is present. No bony destructive lesion is seen. JOINTS: No dislocation present. There are degenerative changes seen at both the acromioclavicular and glenohumeral joints. The findings are most marked at the acromioclavicular joint. SOFT TISSUE: There is a 1.3 cm soft tissue nodule projected over the right lung apex. IMPRESSION: 1. Degenerative changes of the right shoulder. 2. 1.3 cm right upper lobe pulmonary nodule. CT scan of the chest should be obtained for further dillan luation. Unexpected findings DATA REPOSITORY: RADIATION DOSE DELIVERED:
--- NOTE | 2023-02-10 11:10 | DI.RAD_ITS ---
Exam(s) XR HAND LT COMPLETE EXAM: XR HAND LT COMPLETE CLINICAL HISTORY: increased pain, LROM,M79.642. TECHNIQUE: 2D digital imaging was performed of the left hand. Three views were obtained. AP, later al and oblique views were obtained. COMPARISON: CR LEFT HAND COMPLETE from 04/29/2010 FINDINGS: BONES: No acute fracture is present. No bony destructive lesion is seen. JOINTS: No dislocation present. There are marked degenerative changes seen in the hand and wrist maria isabel acterized by joint space narrowing and osteophytes. The findings are most marked at the 1st CMC join t. The findings have significantly advanced since the prior examination from 2009. SOFT TISSUE: Normal. IMPRESSION: Marked degenerative changes of the left hand particularly at the 1st CMC joint. DATA REPOSITORY: RADIATION DOSE DELIVERED:
== END ==
PROVIDERS: PCP Nurse Practitioner Family; Visit Provider Nurse Practitioner Family
DX: M19.011 Primary osteoarthritis, right shoulder (principal); R91.8 Other nonspecific abnormal finding of lung field; M18.12 Unilateral primary osteoarthritis of first carpometacarpal joint, left hand
CPT/HCPCS: 73030; 73130; 73223

== ENCOUNTER → 2023-02-10 00:57 | Outpatient (CLI) | payer MEDICARE, MEDICAID, SELFPAY ==
--- NOTE | 2023-02-10 07:30 | DI.MRI_ITS ---
Exam(s) MR UPPER JOINT RT WO/W EXAM: MR UPPER JOINT RT WO/W CLINICAL HISTORY: giant cell tumor of tendon sheath vs hemangioma,R22.31,MASS OF RT WRIST. TECHNIQUE: Multiplanar multisequence MRI was performed. CONTRAST MATERIAL: IV Contrast: 20 mL of Dotarem contrast administered. COMPARISON: None. FINDINGS: Bones: There is no fracture or contusion.Ligaments: The TFCC is intact. Both the scapholunate and alycia otriquetral ligaments are intact. Degenerative changes greatest at 1st carpal metacarpal joint. Musculoskeletal Structures: The visualized flexor and extensor tendons are intact. There is no muscle atrophy. There are no muscular strains seen. The visualized median nerve appears to be within normal limits and is normally located within the car pal tunnel. Soft tissues: Circumscribed 9 x 7 by 10 millimeter mass in the ventral at medial soft tissues which a ppears to lie within the immediate subcutaneous fat and directly adjacent to the flexor carpi ulnaris muscle. It is intermediate signal on T1 weighted images and high signal on T2 weighted and appears homogeneous. There is homogeneous enhancement following IV gadolinium. No associated flow voids or visible vessels. It does not have typical appearance joint cell tumor of the tendon sheath or kenzie ioma. The findings could represent a schwannoma or neurofibroma. IMPRESSION: Circumscribed benign-appearing mass in the subcutaneous tissue is not appear directly associated with the tendon. No visible vasculature. Findings could represent schwannoma or neurofibroma. DATA REPOSITORY:
[2023-02-10] MEDS: Gadoterate meglumine 20 ML VIAL IVP (09:07)
[2023-02-10] MEDS: Normal Saline Flush 10 ML SYR IJ (09:07)
== END ==
PROVIDERS: PCP Nurse Practitioner Family; Visit Provider Nurse Practitioner Family
DX: R22.31 Localized swelling, mass and lump, right upper limb (principal); M18.11 Unilateral primary osteoarthritis of first carpometacarpal joint, right hand
CPT/HCPCS: 73223

== ENCOUNTER → 2023-02-16 09:21 | Outpatient (BNVA) | payer MEDICARE, MEDICAID, SELFPAY | PROVIDERS: PCP Nurse Practitioner Family; Referring Provider Nurse Practitioner Family; Visit Provider Student in an Organized Health Care Education/Training Program | DX: M18.11 Unilateral primary osteoarthritis of first carpometacarpal joint, right hand (principal); M18.12 Unilateral primary osteoarthritis of first carpometacarpal joint, left hand; M19.032 Primary osteoarthritis, left wrist; M67.911 Unspecified disorder of synovium and tendon, right shoulder; M67.912 Unspecified disorder of synovium and tendon, left shoulder; M70.62 Trochanteric bursitis, left hip; R22.31 Localized swelling, mass and lump, right upper limb | CPT/HCPCS: 99215 ==

== ENCOUNTER → 2023-02-27 01:48 | Outpatient (CLI) | payer MEDICARE, MEDICAID, SELFPAY ==
--- NOTE | 2023-02-27 07:15 | DI.CT_ITS ---
Exam(s) CT CHEST WO EXAM: CT CHEST WO CLINICAL HISTORY: f/u from xray, solitary pulmonary nodule, R91.1 TECHNIQUE: Imaging Protocol: Axial computed tomography images with coronal and sagittal reformatted images were created and reviewed CONTRAST MATERIAL: Intravenous: Omnipaque 350 Contrast volume:structured data ml. COMPARISON: CR CHEST 2 VIEWS PA,LAT from 12/07/[address] ABDOMEN PELVIS W from 01/18/2021 CR XR SHOULDER RT COMPLETE 2+V from 02/10/2023 FINDINGS: Pulmonary parenchyma: 12 millimeter nodule posterior right upper lobe. Additional [address] nodule left upper lobe. 5 millimeter nodule anterior inferior right upper lobe. Tracheobronchial tree: No bronchiectasis or mucous plugging. Mediastinum and Kassandra: No dominant adenopathy or fluid collection. Pleura: No effusion or pneumothorax. Heart: Left ventricular and left atrial enlargement. Mild coronary artery calcifications are seen. Aorta: Thoracic aorta non-dilated. Mild atherosclerotic changes. Upper abdomen: Status post cholecystectomy. Left upper quadrant splenules. Bones: Degenerative changes in the spine. Soft tissues: Unremarkable. IMPRESSION: Several bilateral pulmonary nodules are identified, the largest in the right upper lobe measuring 12 millimeters. Findings could represent primary or metastatic disease. CT abdomen and pelvis could be considered fu rther evaluation. RADIATION DOSE DELIVERED: 699.51mGy.cm Total DLP DATA REPOSITORY: All CT scans at this facility are submitted to the National Radiology Data Registry (NRDR) Dose Index Registry (DIR) with the [employer] ([employer]). RADIATION OPTIMIZATION: All CT scans at this facility use at least one of these dose optimization te chniques: automated exposure control; mA and/or kV adjustment per patient size (includes targeted exa ms where dose is matched to clinical indication); or iterative reconstruction.
== END ==
PROVIDERS: PCP Nurse Practitioner Family; Visit Provider Nurse Practitioner Family
DX: R91.8 Other nonspecific abnormal finding of lung field (principal)
CPT/HCPCS: 71250

== ENCOUNTER → 2023-03-15 01:48 | Outpatient (CLI) | payer MEDICARE, MEDICAID, SELFPAY ==
--- NOTE | 2023-03-15 07:08 | DI.CT_ITS ---
Exam(s) CT ABDOMEN PELVIS W EXAM: CT ABDOMEN PELVIS W CLINICAL HISTORY: f/u from chest CT,pulmonary nodules,? primary or mets. TECHNIQUE: Imaging Protocol: Axial computed tomography images with coronal and sagittal reformatted images were created and reviewed CONTRAST MATERIAL: Intravenous: Omnipaque 350 Contrast volume:100 ml Oral: yes COMPARISON: CT ABD PELVIS WITH CONTRAST from 06/24/2009 CT ABD PELVIS WITH CONTRAST from 10/06/[address] ABDOMEN PELVIS W from 01/18/[address] ABDOMEN PELVIS W from 10/19/[address] CHEST WO from 02/27/2023 FINDINGS: ABDOMEN: Lung Bases: Mild atelectasis or scarring left lung base. Heart is enlarged. Liver: Normal density. No measurable mass. Gallbladder and biliary tract: Status post cholecystectomy. No radiodense calculus or dilation. Pancreas: Somewhat atrophic. Normal density, no abnormal calcifications or inflammatory process. Spleen: Normal. Kidneys: Normal size, contour and axis. Bilateral nonobstructing stones. Several bilateral cysts. Largest is a hyperdense cyst near the upper pole measuring 2.5 cm. This has increased in size compar ed with prior exams. Adrenal glands: Stable prominence of left adrenal gland. Vasculature: Abdominal aorta non-dilated. Soft tissues: Large inferior abdominal pannus. PELVIS: Bladder: No gross wall thickening. No calculi.No focal mass. Bowel: No obstruction. No bowel wall thickening. Appendix normal. Peritoneal cavity: No ascites, collection or mesenteric inflammatory response. Bones: Bilateral hip prostheses. Reproductive organs: Not well evaluated due to artifact from hip prostheses. Apparent right-sided ut erine fibroid. On thickening of the endometrium. Lymph nodes: Unremarkable. IMPRESSION:: One. 2.5 centimeter smoothly marginated lesion at the superior pole of the left kidney has increased in size from the previous exam. Renal ultrasound could be considered for further eval uation. Bilateral nonobstructing renal stones. Uterine fibroid, stable over multiple exams. Thickening of the endometrium is seen, abnormal in this age group. Pelvic ultrasound recommended for further evaluation. RADIATION DOSE DELIVERED: 1,261.13mGy.cm Total DLP DATA REPOSITORY: All CT scans at this facility are submitted to the National Radiology Data Registry (NRDR) Dose Index Registry (DIR) with the [employer] (ACR). RADIATION OPTIMIZATION: All CT scans at this facility use at least one of these dose optimization te chniques: automated exposure control; mA and/or kV adjustment per patient size (includes targeted exa ms where dose is matched to clinical indication); or iterative reconstruction.
[2023-03-15] MEDS: Barium Sulfate 2% W/V-Berry Smoothie 450 ML BTL PO (08:05)
[2023-03-15] MEDS: Omnipaque 350 MG/ML 500 ML BTL-Imaging package IJ (10:17)
[2023-03-15] MEDS: Normal Saline - Diluent 50 ML VIAL IJ (10:17)
== END ==
PROVIDERS: PCP Nurse Practitioner Family; Visit Provider Nurse Practitioner Family
DX: R91.1 Solitary pulmonary nodule (principal); N20.0 Calculus of kidney
CPT/HCPCS: 74177

== ENCOUNTER → 2023-07-19 14:20 | Outpatient (CLI) | payer MEDICARE, MEDICAID, SELFPAY ==
--- NOTE | 2023-07-19 13:45 | DI.RAD_ITS ---
Exam(s) XR SACROILIAC JOINTS EXAM: XR SACROILIAC JOINTS CLINICAL HISTORY: severe pain on left M53.3 SACROCOCCYGEAL DISORDER. TECHNIQUE: 2D digital imaging was performed. COMPARISON: No exams were available for comparison FINDINGS: 3 views: Three dedicated views of the sacroiliac joints reveal age-appropriate appearing SI joints. Mild dege nerative changes. No ankylosis. No erosions. No obvious sacral fractures evident. Bilateral hip prostheses evident. IMPRESSION: Age-appropriate appearing sacroiliac joints. Bilateral hip prostheses are noted. DATA REPOSITORY: RADIATION DOSE DELIVERED:
== END ==
PROVIDERS: PCP Nurse Practitioner Family; Visit Provider Nurse Practitioner Family
DX: M53.3 Sacrococcygeal disorders, not elsewhere classified (principal); Z96.643 Presence of artificial hip joint, bilateral
CPT/HCPCS: 72202

== ENCOUNTER → 2023-10-18 13:32 | Outpatient (BNVA) | payer MEDICARE, MEDICAID, SELFPAY | PROVIDERS: PCP Nurse Practitioner Family; Referring Provider Nurse Practitioner Family; Visit Provider Student in an Organized Health Care Education/Training Program | DX: M19.012 Primary osteoarthritis, left shoulder (principal); M75.101 Unspecified rotator cuff tear or rupture of right shoulder, not specified as traumatic | CPT/HCPCS: 20610; J1010 ==

== ENCOUNTER 2023-12-15 13:03 | Outpatient (REF) | payer MEDICARE, SELFPAY ==
[2023-12-15 12:21] LABS: HCT 41.4 % (36.0-46.0); HGB 13.7 g/dL (11.2-15.7); MCH 32.7 pg (27.0-33.0); MCHC 33.1 % (32.0-36.0); MCV 99 fL (80-95); MPV 9.6 fL (8.0-11.0); Platelet Count 375 10^3/uL (130-400); RBC 4.19 10^6/uL (3.93-5.22); RDW-SD 51.3 fL
[2023-12-15 12:39] LABS: Iron 62 ug/dL (50-170)
[2023-12-15 13:00] LABS: Hemoglobin A1C 6.1 % (<5.7)
[2023-12-15 13:02] LABS: ALT 32 U/L (14-59); AST 22 U/L (15-37); Albumin 3.5 g/dL (3.4-5.0); Alkaline Phosphatase 85 U/L (46-116); Anion Gap 8.3 mmol/L (3-11); BUN 27 mg/dL (7-18); Bilirubin, Total 0.4 mg/dL (0.2-1.0); CO2 28.7 mmol/L (21.0-32.0); Calcium 9.7 mg/dL (8.5-10.1); Chloride 104 mmol/L (98-107); Estimated GFR 56.25 (mL/min/1.73m2); Ferritin 80 ng/mL (8-252); Glucose 114 mg/dL (74-106); Potassium 4.1 mmol/L (3.5-5.1); Sodium 141 mmol/L (136-145); TSH (W/Ref FT4) 1.08 uIU/mL (0.36-3.74); Total Protein 6.6 g/dL (6.4-8.2); Vitamin B12 710 pg/mL (193-986)
[2023-12-15 13:27] LABS: Lab Add On Test DONE
[2023-12-15 14:03] LABS: Folate 18.6 ng/mL (8.6-20.0)
== END 2023-12-15 13:04 | disposition home or self-care (01) ==
LOC: LBN 13:03
PROVIDERS: PCP Nurse Practitioner Family; Visit Provider Nurse Practitioner Family
DX: E11.9 Type 2 diabetes mellitus without complications; E78.2 Mixed hyperlipidemia; R53.83 Other fatigue
CPT/HCPCS: 80053; 85027; 82607; 82728; 82746; 83036; 83540; 84443

== ENCOUNTER 2024-06-11 16:13 | Outpatient (REF) | payer MEDICARE, SELFPAY ==
[2024-06-11 21:42] LABS: Abs Immature Grans 0.04 10^3/uL (0.0-0.06); Absolute Basophil Count 0.06 10^3/uL (0.0-0.2); Absolute Eosinophil Count 0.17 10^3/uL (0.0-0.7); Absolute Lymphocyte Count 2.25 10^3/uL (1.2-3.4); Absolute Monocyte Count 0.68 10^3/uL (0.1-0.8); Absolute Neutrophil Count 5.49 10^3/uL (1.2-6.7); Basophils % 0.7 %; HCT 38.7 % (36.0-46.0); HGB 13.2 g/dL (11.2-15.7); Immature Grans % 0.5 %; Lymphocytes % 25.9 %; MCH 32.8 pg (27.0-33.0); MCHC 34.1 % (32.0-36.0); MCV 96 fL (80-95); MPV 9.6 fL (8.0-11.0); Monocytes % 7.8 %; Neutrophils % 63.1 %; Platelet Count 386 10^3/uL (130-400); RBC 4.02 10^6/uL (3.93-5.22); RDW 14.1 % (11.7-14.6); RDW-SD 49.3 fL; WBC 8.69 10^3/uL (4.4-10.8)
[2024-06-11 21:44] LABS: ESR 19 mm/hr (0-30)
[2024-06-11 21:49] LABS: C-Reactive Protein < 0.50 mg/dL (<or=0.5)
[2024-06-13 10:31] LABS: Lyme Ab w Rflx to Lyme Confirm Positive (Negative)
[2024-06-13 13:05] LABS: Lyme IgG Ab Positive (Negative); Lyme IgM Ab Positive (Negative)
[2024-06-15 00:11] LABS: Anaplasma phagocytophilum Negative (Negative); B. miyamotoi PCR Negative (Negative); Babesia divergens/MO-1 Negative (Negative); Babesia duncani Negative (Negative); Babesia microti Negative (Negative); Ehrlichia chaffeensis Negative (Negative); Ehrlichia ewingii/canis Negative (Negative); Ehrlichia muris eauclairensis Negative (Negative)
== END 2024-06-11 16:14 | disposition home or self-care (01) ==
LOC: LBN 16:13
PROVIDERS: PCP Nurse Practitioner Family; Visit Provider Nurse Practitioner Family
DX: G89.4 Chronic pain syndrome (principal); M79.641 Pain in right hand
CPT/HCPCS: 85652; 86617; 87798; 84550; 85025; 86140; 86618

== ENCOUNTER → 2024-06-19 08:35 | Outpatient (BNVA) | payer MEDICARE, MEDICAID, SELFPAY | PROVIDERS: PCP Nurse Practitioner Family; Referring Provider Nurse Practitioner Family; Visit Provider Student in an Organized Health Care Education/Training Program | DX: M19.012 Primary osteoarthritis, left shoulder (principal); M75.101 Unspecified rotator cuff tear or rupture of right shoulder, not specified as traumatic; A69.23 Arthritis due to Lyme disease | CPT/HCPCS: 20610; J1010 ==

== ENCOUNTER 2024-07-09 09:26 | Outpatient (CLI) | payer MEDICARE, SELFPAY ==
[2024-07-09 12:56] LABS: Anion Gap 4.2 mmol/L (3-11); BUN 26 mg/dL (7-18); C-Reactive Protein 0.58 mg/dL (<or=0.5); CO2 30.8 mmol/L (21.0-32.0); CREATININE 1.1 mg/dL (0.55-1.02); Calcium 9.8 mg/dL (8.5-10.1); Chloride 109 mmol/L (98-107); ESR 14 mm/hr (0-30); Estimated GFR 50.17 (mL/min/1.73m2); Glucose 106 mg/dL (74-106); Potassium 4.3 mmol/L (3.5-5.1); Sodium 144 mmol/L (136-145)
== END 2024-07-09 09:27 | disposition home or self-care (01) ==
LOC: LOS 09:26
PROVIDERS: PCP Nurse Practitioner Family; Referring Provider Nurse Practitioner Family; Visit Provider Nurse Practitioner Family
DX: I10 Essential (primary) hypertension (principal); A69.23 Arthritis due to Lyme disease
CPT/HCPCS: 36415; 80048; 85652; 86140

== ENCOUNTER → 2024-09-24 14:02 | Outpatient (BNVA) | payer MEDICARE, MEDICAID, SELFPAY | PROVIDERS: PCP Nurse Practitioner Family; Referring Provider Nurse Practitioner Family; Visit Provider Student in an Organized Health Care Education/Training Program | DX: M19.012 Primary osteoarthritis, left shoulder (principal); M75.101 Unspecified rotator cuff tear or rupture of right shoulder, not specified as traumatic; A69.23 Arthritis due to Lyme disease | CPT/HCPCS: 99213 ==

== ENCOUNTER 2025-01-07 15:56 | Outpatient (REF) | payer MEDICARE, SELFPAY ==
--- NOTE | 2025-01-07 11:40 | SKI_PTH ---
PATIENT: Cathryn Parrish LOC: [facility] U#:[id number] AGE/SX: 84/F ROOM: RE01/07/[address]: Latrell Marin DNP : 1940 BED: DIS: 01/07/2025 SPEC #: [id number] RECD: 01/08/25 09:36 STATUS: YANCY REQ #: [id number] LAINA: 01/07/25 11:[address]: Latrell Dominguez DEPT: Surgical Specimen RECD BY: Tayler Leary Tissues: 1 - SKIN BIOPSY(SHAVE/PUNCH) 2 - SKIN BIOPSY(SHAVE/PUNCH) 3 - SKIN BIOPSY(SHAVE/PUNCH) 4 - SKIN BIOPSY(SHAVE/PUNCH) Procedures: SKIN LEVEL 4 Comments: [id number]
== END 2025-01-07 15:57 | disposition home or self-care (01) ==
LOC: LBN 15:56
PROVIDERS: PCP Nurse Practitioner Family; Visit Provider Nurse Practitioner Family
DX: L82.1 Other seborrheic keratosis (principal)
CPT/HCPCS: 88305

== ENCOUNTER 2025-03-26 15:28 | Outpatient (CLI) | payer MEDICARE, MEDICAID, SELFPAY ==
--- NOTE | 2025-03-26 14:30 | DI.RAD_ITS ---
Exam(s) XR SHOULDER LT COMPLETE 2+V EXAM: XR SHOULDER LT COMPLETE 2+V CLINICAL HISTORY: BILATERAL SHOULDER PAIN. TECHNIQUE: 2D digital imaging was performed. Two views. COMPARISON: CR XR SHOULDER LT COMPLETE 2+V from 01/04/2023 CR XR SHOULDER RT COMPLETE 2+V from 02/10/2023 FINDINGS: BONES: No acute fracture is present. No bony destructive lesion is seen. There is a bone island in the proximal humeral shaft. JOINTS: No dislocation present. There is severe narrowing of the glenohumeral joint space. There is prominent spurring at the glenoid as well as humeral head. There are also significant degenerative changes of the acromioclavicular joint. There is spurring at the undersurface of the acromion. SOFT TISSUE: Normal. IMPRESSION: Severe degenerative changes of the glenohumeral joint. DATA REPOSITORY: RADIATION DOSE DELIVERED:
--- NOTE | 2025-03-26 14:30 | DI.RAD_ITS ---
Exam(s) XR SHOULDER RT COMPLETE 2+V EXAM: XR SHOULDER RT COMPLETE 2+V CLINICAL HISTORY: BILATERAL SHOULDER PAIN. TECHNIQUE: 2D digital imaging was performed. Two views. COMPARISON: CR XR SHOULDER RT COMPLETE 2+V from 02/10/2023 CR XR SHOULDER LT COMPLETE 2+V from 03/26/2025 FINDINGS: BONES: No acute fracture is present. No bony destructive lesion is seen. There is spurring at greater and lesser tuberosities as well as at the undersurface of the acromion. JOINTS: No dislocation present. There is severe degenerative changes prominent spurring at the acromioclavicular joint. There is mild narrowing of the glenohumeral joint space with mild to moderate periarticular spurring. SOFT TISSUE: Normal. IMPRESSION: Severe degenerative changes of the acromioclavicular joint. [id number] degenerative changes of the glenohumeral joint. DATA REPOSITORY: RADIATION DOSE DELIVERED:
== END 2025-03-26 15:29 | disposition home or self-care (01) ==
LOC: DIORS 15:29
PROVIDERS: PCP Nurse Practitioner Family; Referring Provider Nurse Practitioner Family; Visit Provider Student in an Organized Health Care Education/Training Program
DX: M19.012 Primary osteoarthritis, left shoulder (principal); M75.101 Unspecified rotator cuff tear or rupture of right shoulder, not specified as traumatic
CPT/HCPCS: 99213; 73030

== ENCOUNTER 2025-04-14 11:47 | Outpatient (CLI) | payer MEDICARE, SELFPAY ==
[2025-04-14 17:21] LABS: Anion Gap 10.8 mmol/L (3-11); BUN 30 mg/dL (7-18); CO2 27.2 mmol/L (21.0-32.0); Calcium 10.0 mg/dL (8.5-10.1); Chloride 102 mmol/L (98-107); Estimated GFR 49.86 (mL/min/1.73m2); Glucose 103 mg/dL (74-106); Potassium 3.7 mmol/L (3.5-5.1); Sodium 140 mmol/L (136-145)
== END 2025-04-14 11:48 | disposition home or self-care (01) ==
LOC: LOS 11:49
PROVIDERS: PCP Nurse Practitioner Family; Visit Provider Nurse Practitioner Family
DX: I10 Essential (primary) hypertension (principal)
CPT/HCPCS: 36415; 80048

== ENCOUNTER 2025-04-24 03:39 | Outpatient (CLI) | payer MEDICARE, MEDICAID, SELFPAY ==
--- NOTE | 2025-04-24 14:06 | DI.RAD_ITS ---
Exam(s) RF JOINT INJ. FLUORO GUID RAD EXAM: RF JOINT INJ. FLUORO GUID RAD CLINICAL HISTORY: R SHOULDER PAIN,fluoro guided injection,rotator cuff arthropathy,m75.101,. The Patient has had persistent right shoulder pain. Noninvasive measures have been tried. To serve as both diagnostic and therapeutic, an injection under fluoroscopy was recommended. The risks of the procedure were discussed with their Orthopedic provider and the patient elected to proceed. TECHNIQUE: 2D and realtime digital imaging was performed. CONTRAST MATERIAL: Water soluble contrast was utilized. COMPARISON: No exams were available for comparison FINDINGS: The Patient was greeted in the fluoroscopy room. The correct side was identified and the consent was reviewed with the patient and was signed. The patient was properly positioned on the fluoroscopy table. The right shoulderwas then prepped and draped. The right shoulder injection starting point was identified by the bony landmarks and fluoroscopy. The skin and soft tissue in the tract of the injection was anesthetized with 0.25% Bupivacaine. A spinal needle was then inserted into the right shoulder joint at the level of the glenohumeral joint under fluoroscopic guidance. A small amount of Omnipaque solution was injected to confirm intraarticular placement. Once confirmed, the right shoulder was injected with 5cc of a solution containing 0.25% Bupivacaine and 40 mg of Depo-Medrol. A bandaid was placed on the injection site. The patient tolerated the procedure well and left the department in good condition. IMPRESSION: Successful right shoulder injection. RADIATION DOSE DELIVERED: Ka,r=2.5 mGy
--- NOTE | 2025-04-24 14:06 | DI.RAD_ITS ---
Exam(s) RF JOINT INJ. FLUORO GUID RAD EXAM: RF JOINT INJ. FLUORO GUID RAD CLINICAL HISTORY: L SHOULDER PAIN,fluoro guided injection,m19.012, arthritis lt glenohumeral. The Patient has had persistent left shoulder pain. Noninvasive measures have been tried. To serve as both diagnostic and therapeutic, an injection under fluoroscopy was recommended. The risks of the procedure were discussed with their Orthopedic provider and the patient elected to proceed. TECHNIQUE: 2D and realtime digital imaging was performed. CONTRAST MATERIAL: Water soluble contrast was utilized. COMPARISON: No exams were available for comparison FINDINGS: The Patient was greeted in the fluoroscopy room. The correct side was identified and the consent was reviewed with the patient and was signed. The patient was properly positioned on the fluoroscopy table. The left shoulderwas then prepped and draped. The left shoulder injection starting point was i dentified by the bony landmarks and fluoroscopy. The skin and soft tissue in the tract of the injection was anesthetized with 0.25% Bupivacaine. A spinal needle was then inserted into the left shoulder joint at the level of the glenohumeral joint under fluoroscopic guidance. A small amount of Omnipaque solution was injected to confirm intraarticular placement. Once confirmed, the left shoulder was injected with 5cc of a solution containing 0.25% Bupivacaine and 40 mg of Depo-Medrol. A bandaid was placed on the injection site. The patient tolerated the procedure well and left the department in good condition. IMPRESSION: Successful left shoulder injection. RADIATION DOSE DELIVERED: Ka,r=2.75 mGy
[2025-04-24] MEDS: methylPREDNISolone ACETATE 40 MG/ML VIAL IM ×2 (14:21→14:27)
[2025-04-24] MEDS: Bupivacaine 0.25% Pres-Free 10 ML VIAL IJ (14:22)
[2025-04-24] MEDS: Omnipaque 300 MG/ML 10 ML BTL IJ (14:23)
== END 2025-04-24 03:59 ==
PROVIDERS: PCP Nurse Practitioner Family; Visit Provider Student in an Organized Health Care Education/Training Program
DX: M19.012 Primary osteoarthritis, left shoulder (principal); M75.101 Unspecified rotator cuff tear or rupture of right shoulder, not specified as traumatic
CPT/HCPCS: 20610; 77002; J0665; J1010

== ENCOUNTER 2025-06-18 13:39 | Outpatient (CLI) | payer MEDICARE, SELFPAY ==
[2025-06-18 16:35] LABS: HCT 38.7 % (36.0-46.0); HGB 12.9 g/dL (11.2-15.7); MCH 32.2 pg (27.0-33.0); MCHC 33.3 % (32.0-36.0); MCV 97 fL (80-95); MPV 9.4 fL (8.0-11.0); Platelet Count 407 10^3/uL (130-400); RBC 4.01 10^6/uL (3.93-5.22); RDW 13.8 % (11.7-14.6); RDW-SD 49.1 fL; WBC 7.64 10^3/uL (4.4-10.8)
[2025-06-18 16:49] LABS: Hemoglobin A1C 6.0 % (<5.7)
[2025-06-18 16:51] LABS: TSH (W/Ref FT4) 1.04 uIU/mL (0.55-4.78)
[2025-06-18 16:52] LABS: Iron 74 ug/dL (50-170)
[2025-06-18 16:58] LABS: ALT 27 U/L (10-49); AST 29 U/L (<34); Albumin 4.1 g/dL (3.2-5.0); Alkaline Phosphatase 85 U/L (46-116); Anion Gap 9.1 mmol/L (3-11); BUN 23 mg/dL (9-23); Bilirubin, Total 0.4 mg/dL (0.2-1.2); CO2 25.9 mmol/L (20.0-31.0); Calcium 10.1 mg/dL (8.3-10.6); Chloride 106 mmol/L (98-107); Cholesterol 203 mg/dL (<200); Ferritin 97 ng/mL (7-271); Folate > 24.0 ng/mL (>5.38); Glucose 116 mg/dL (74-106); HDL Cholesterol 56 mg/dL (>or=50); Potassium 3.4 mmol/L (3.5-5.1); Sodium 141 mmol/L (136-145); Total Protein 7.1 g/dL (5.7-8.2); Vitamin B12 1299 pg/mL (211-911)
[2025-06-19 10:55] LABS: Lyme Ab w Rflx to Lyme Confirm Positive (Negative)
[2025-06-19 16:37] LABS: Lyme IgG Ab Positive (Negative)
[2025-06-20 14:18] LABS: B. miyamotoi PCR Negative (Negative); Babesia divergens/MO-1 Negative (Negative); Ehrlichia muris eauclairensis Negative (Negative)
== END 2025-06-18 13:40 | disposition home or self-care (01) ==
LOC: LOS 13:40
PROVIDERS: PCP Nurse Practitioner Family; Visit Provider Nurse Practitioner Family
DX: D50.9 Iron deficiency anemia, unspecified (principal); D53.9 Nutritional anemia, unspecified; E78.2 Mixed hyperlipidemia; E11.9 Type 2 diabetes mellitus without complications; R53.83 Other fatigue; A69.23 Arthritis due to Lyme disease
CPT/HCPCS: 36415; 80053; 80061; 85027; 86617; 87798; 82607; 82728; 82746; 83036; 83540; 84443; 86618